=== PATIENT | male | born 1950 | race Two or more races ===

== ENCOUNTER 2016-09-30 03:23 | Inpatient (IN) | payer MEDICARE, MEDICAID ==
[2016-09-30 04:13] VITALS: BP 130/53
[2016-09-30] MEDS ORDERED: Pneumococcal Vaccine 0.5 mL Vial IM ONE (06:48)
[2016-09-30] MEDS ORDERED: guaiFENesin 200 MG/10 ML UDC PO PRN (09:53)
[2016-09-30] MEDS ORDERED: Maalox 30 mL Cup PO PRN (09:53)
[2016-09-30 11:20] LABS: HEMATOCRIT 37.3 % (39.0-49.0); HEMOGLOBIN 12.8 gm/dL (12.6-17.4); MEAN CELL VOLUME 91.8 fl (80-99); MEAN CORPUSCULAR HEMOGLOBIN 31.5 pg (27.0-31.0); MEAN CORPUSCULAR HGB CONC 34.3 pg (28.0-36.0); MEAN PLATELET VOLUME 7.4 fl; PLATELET COUNT 253 Th/cmm (150-400); RED BLOOD COUNT 4.06 Mil/cmm (3.80-5.80); RED CELL DISTRIBUTION WIDTH 12.6 % (11.5-20.0); WHITE BLOOD COUNT 13.3 Th/cmm (4.8-10.8)
[2016-09-30] MEDS: Albuterol Nebulizer 2.5mg/3mL HHN SCH ×3 (11:23→19:15)
[2016-09-30] MEDS: Ipratropium Neb 0.5 mg/2.5 mL UD HHN SCH ×3 (11:23→19:15)
[2016-09-30 11:32] LABS: ALB/GLOB RATIO 1.1 (1.0-1.8); ALKALINE PHOSPHATASE 76 U/L (34-104); ANION GAP 8.5 (7.0-16.0); BILIRUBIN,TOTAL 0.5 mg/dL (0.3-1.0); BUN - UREA NITROGEN 9 mg/dL (7-25); BUN/CREATININE RATIO 12.9; CALCIUM SERUM 9.6 mg/dL (8.6-10.3); CARBON DIOXIDE 26.2 mEq/L (21.0-31.0); CHLORIDE 101 mEq/L (98-107); CREATININE - SERUM 0.7 mg/dL (0.7-1.3); GLUCOSE 153 mg/dL (70-105); MAGNESIUM 1.9 mg/dL (1.9-2.7); POTASSIUM SERUM 3.7 mEq/L (3.5-5.1); SGOT 14 U/L (13-39); SGPT/ALT 15 U/L (7-52); SODIUM SERUM 132 mEq/L (136-145)
[2016-09-30 11:46] LABS: BNP 42.4 pg/mL (5.0-100.0)
[2016-09-30 11:55] LABS: BAND NEUTROPHILE 3 % (0-10); NEUTROPHILS 75 % (40-80); PLATELET ESTIMATE ADEQUATE (NORMAL); TOTAL CELLS COUNTED 100
[2016-09-30 12:08] LABS: TSH 0.88 uIU/ml (0.34-5.60)
[2016-09-30] MEDS: D5-0.45NS 1,000 ML IV SCH (12:12)
--- NOTE | 2016-09-30 12:13 | Diagnostic Imaging Report ---
Portable chest x-ray History: Cough Allowing for portable technique the heart size is normal. No focal pulmonary parenchymal processes. No hilar or mediastinal abnormalities. Calcification is noted in the soft tissues adjacent the lateral aspect of the left humeral head consistent with calcific tendinitis. Impression: Allowing for poor inspiration, no acute focal pulmonary processes
[2016-09-30] MEDS: Levofloxacin 500mg/100mL 500 MG/100 ML BAG IV SCH (12:14)
--- NOTE | 2016-09-30 12:38 | Internal Medicine Prog Note ---
Internal Medicine Subjective - Subjective Service Date: 09/30/16 ([facility] [id number]) Internal Medicine Objective - Results Result Diagrams: 09/30/16 10:40 09/30/16 10:40 Recent Labs: Laboratory Last Values WBC 13.3 Th/cmm (4.8-10.8) H 09/30/16 10:40 RBC 4.06 Mil/cmm (3.80-5.80) 09/30/16 10:40 Hgb 12.8 gm/dL (12.6-17.4) 09/30/16 10:40 Hct 37.3 % (39.0-49.0) L 09/30/16 10:40 MCV 91.8 fl (80-99) 09/30/16 10:40 MCH 31.5 pg (27.0-31.0) H 09/30/16 10:40 MCHC Differential 34.3 pg (28.0-36.0) 09/30/16 10:40 RDW 12.6 % (11.5-20.0) 09/30/16 10:40 Plt Count 253 Th/cmm (150-400) 09/30/16 10:40 MPV 7.4 fl 09/30/16 10:40 Band Neutrophils % 3 % (0-10) 09/30/16 10:40 Neutrophils (Manual) 75 % (40-80) 09/30/16 10:40 Lymphocytes 14 % (20-50) L 09/30/16 10:40 Monocytes 8 % (2-10) 09/30/16 10:40 Platelet Estimate ADEQUATE (NORMAL) 09/30/16 10:40 Sodium 132 mEq/L (136-145) L 09/30/16 10:40 Potassium 3.7 mEq/L (3.5-5.1) 09/30/16 10:40 Chloride 101 mEq/L (98-107) 09/30/16 10:40 Carbon Dioxide 26.2 mEq/L (21.0-31.0) 09/30/16 10:40 Anion Gap 8.5 (7.0-16.0) 09/30/16 10:40 BUN 9 mg/dL (7-25) 09/30/16 10:40 Creatinine 0.7 mg/dL (0.7-1.3) 09/30/16 10:40 Est GFR ( Amer) > 60.0 ml/min 09/30/16 10:40 Est GFR (Non-Af Amer) > 60.0 ml/min 09/30/16 10:40 BUN/Creatinine Ratio 12.9 09/30/16 10:40 Glucose 153 mg/dL (70-105) H 09/30/16 10:40 Calcium 9.6 mg/dL (8.6-10.3) 09/30/16 10:40 Magnesium 1.9 mg/dL (1.9-2.7) 09/30/16 10:40 Total Bilirubin 0.5 mg/dL (0.3-1.0) 09/30/16 10:40 AST 14 U/L (13-39) 09/30/16 10:40 ALT 15 U/L (7-52) 09/30/16 10:40 Alkaline Phosphatase 76 U/L (34-104) 09/30/16 10:40 Ammonia 54 umol/L (16-53) H 09/30/16 10:40 B-Natriuretic Peptide 42.4 pg/mL (5.0-100.0) 09/30/16 10:40 Total Protein 7.1 gm/dL (6.0-8.3) 09/30/16 10:40 Albumin 3.7 gm/dL (4.2-5.5) L 09/30/16 10:40 Globulin 3.4 gm/dL 09/30/16 10:40 Albumin/Globulin Ratio 1.1 (1.0-1.8) 09/30/16 10:40 - Physical Exam Vitals and I&O: Vital Signs Temp 98.0 F 09/30/16 06:00 Pulse 98 09/30/16 11:25 Resp 18 09/30/16 11:44 BP 120/56 09/30/16 06:00 Pulse Ox 99 09/30/16 11:25 Intake & Output 09/29/16 09/30/16 09/30/16 18:59 06:59 18:59 Intake Total 0 0 Output Total 300 0 Balance -300 0 Weight (lbs) 94 lb Intake: Oral 0 0 Output: Urine 300 0 Other: # Bowel Movements 0 Stool Characteristics Soft Soft Liquid Liquid Brown Brown Active Medications: Current Medications Acetaminophen (Tylenol) 650 mg PO Q4HR PRN PRN Reason: Pain or Fever >101 Stop: 11/29/16 09:52 Al Hydrox/Mg Hydrox/Simethicone (Maalox) 30 ml PO Q6HR PRN PRN Reason: GI DISTRESS Stop: 11/29/16 09:52 Albuterol Sulfate (Albuterol 2.5mg/3ml Neb Ud) 2.5 mg HHN QIDRT [facility] Stop: 11/29/16 10:59 Last Admin: 09/30/16 11:23 Dose: 2.5 mg Baclofen (Lioresal) 15 mg PO BID [facility] Stop: 11/29/16 16:59 Guaifenesin (Robitussin) 200 mg PO Q4HR PRN PRN Reason: Cough or Congestion Stop: 11/29/16 09:52 Dextrose/Sodium Chloride (D5-0.45ns) 1,000 mls @ 100 mls/hr IV .Q10H [facility] Stop: 11/29/16 09:59 Last Admin: 09/30/16 12:12 Dose: 100 mls/hr Levofloxacin (Levaquin Pb) 500 mg in 100 mls @ 100 mls/hr IV Q24HR [facility] Stop: 11/29/16 09:59 Last Admin: 09/30/16 12:14 Dose: 100 mls/hr Ipratropium [place] (Atrovent Neb 0.5mg/2.5ml) 0.5 mg HHN QIDRT [facility] Stop: 11/29/16 10:59 Last Admin: 09/30/16 11:23 Dose: 0.5 mg Lactulose (Cephulac) 10 gm PO DAILY [facility] Stop: 11/30/16 08:59 Levetiracetam 500 mg/ (Levetiracetam 250 mg) 750 mg PO BID [facility] Stop: 11/29/16 16:59 Lorazepam (Ativan) 1 mg IV Q4HR PRN; Protocol PRN Reason: Seizure Stop: 11/29/16 09:52 Meclizine HCl (Antivert) 25 mg PO DAILY PRN PRN Reason: Nausea / Vomiting Stop: 11/29/16 09:52 Ondansetron HCl (Zofran) 4 mg IV Q8H PRN PRN Reason: Nausea / Vomiting Stop: 11/29/16 09:52 Quetiapine Fumarate (Seroquel) 50 mg PO HS [facility] PRN Reason: Protocol Stop: 11/29/16 20:59 Trazodone HCl (Desyrel) 100 mg PO HS [facility] Stop: 11/29/16 20:59 Internal Medicine Assmt/Plan - Assessment Assessment: SEPSIS FEVER ALZHEIMER DEMENTIA SEIZURE
[2016-09-30] MEDS ORDERED: Albuterol Nebulizer 2.5mg/3mL HHN SCH (13:00)
[2016-09-30 17:02] LABS: URINE BILIRUBIN NEGATIVE (NEGATIVE); URINE COLOR YELLOW; URINE GLUCOSE (UA) NEGATIVE (NEGATIVE); URINE KETONE NEGATIVE (NEGATIVE)
[2016-09-30 17:15] LABS: URINE BLOOD MODERATE (NEGATIVE); URINE PH 7.5; URINE PROTEIN 30 mg/dL (NEGATIVE)
[2016-09-30 17:18] LABS: URINE BACTERIA NONE SEEN /hpf (NONE SEEN); URINE EPITHELIAL CELLS NONE SEEN /lpf (FEW); URINE RBC 25-50 /hpf (0-5); URINE WBC 0-2 /hpf (0-5)
--- NOTE | 2016-09-30 18:22 | History & Physical ---
CHIEF COMPLAINT: Fever for 3 days. HISTORY OF PRESENT ILLNESS: This is a 66-year-old male who is a direct admission from [facility]. According to the daughter at bedside, the patient has been having a 3-day history of fever and chills. The patient was taking [id number] Tylenol, but fever was unrelieved. Also, the daughter complained that the patient has been having foul smelling urine. No hematuria noted. The patient has no recent travel outside of the . The patient has severe Alzheimer dementia. The patient is being taken care of at home by his . The patient's daughter states that he has a sacral ulcer and she thinks that might be infected and also she states that his rectum too has wound that might be connected why he has fever. Due to insurance purposes, the patient is now here at [facility]. PAST MEDICAL HISTORY: Alzheimer dementia, seizures, and BPH. PAST SURGICAL HISTORY: TURP. SOCIAL HISTORY: The patient has no history of any smoking or drinking. The patient lives at home and is being taken care of with by his . ALLERGIES: No drug allergies. FAMILY HISTORY: Noncontributory. REVIEW OF SYSTEMS: Unable to obtain. The patient is confused. PHYSICAL EXAMINATION: GENERAL: This is an elderly male, well developed, well nourished, in no apparent distress. VITAL SIGNS: Temperature 98.0, heart rate 85, blood pressure 126/56, respirations 18, and O2 96%. HEENT: Head is normocephalic and atraumatic. NECK: Supple. No mass. LUNGS: A few rhonchi bilaterally upon auscultation. CARDIOVASCULAR: Regular rate and rhythm. No murmurs or gallops. SKIN: Intact, warm to touch. ABDOMEN: Soft, nontender, and nondistended. Positive bowel sounds in all 4 quadrants. LABORATORY DATA: WBC 13.3, H and H are 12.8 and 37.3, and platelets 253,000. Sodium 132, potassium 3.7, BUN of 9, creatinine 0.7, and ammonia 54. DIAGNOSIS: The patient had a chest x-ray done and the impression is poor inspiration, no acute focal pulmonary processes. ASSESSMENT: 1. Sepsis. 2. Fevers. 3. Acute urinary tract infection. 4. Alzheimer's dementia. 5. Seizure. PLAN: [facility] The patient to have a consultation with Dr. Jose Shaikh. The patient to have a blood culture done and urinalysis as well. We will keep the patient on IV fluids for hydration and IV antibiotics of Levaquin. Seizure precautions will be initiated. Wound care will also be ordered. We will continue to monitor the patient. JOB# [id number]
--- NOTE | 2016-09-30 23:13 | Admit Criteria Form ---
Admit Criteria Forms - Admit Criteria Diagnosis: URINARY COMPLICATIONS Clinical Indications for Inpatient Care (Place 'X' for any and all applicable criteria): Ongoing inpatient care may be indicated for urinary complications with ANY ONE of the following: [ X]I. Urinary tract infection requiring inpatient care as indicated by ANY ONE of the following(8)(19)(20): [ ]a) Severe symptoms (eg, high fever, severe pain) [ ]b) Vomiting or dehydration requiring ongoing inpatient care [ X]c) IV antibiotic needs that cannot be managed at lower level of care [ ]d) Hemodynamic instability [ ]e) Obstruction of collecting system by stone or tumor [ ]II. Urinary retention requiring drainage or surgery (3)(4)(5)(17)(18) [ ]III. Renal failure (Use Renal Failure Criteria for further information.) [ ]IV. Oliguria(30) [ ]V. Post obstructive diuresis requiring close monitoring of urine output and intravenous compensation for excessive fluid losses(33) Extended stay beyond goal length of stay for primary condition may be needed until ALL of the following are present(3)(4)(5)(8): [ ]a) Renal function (creatinine) at baseline, or daily decreases in creatinine consistent with renal function return [ ]b) Voiding adequately or with urinary catheter or percutaneous suprapubic tube and management regimen in place that is performable at lower level of care. [ ]c) Urine output adequate [ ]d) Fever absent or resolving [ ]e) Infection absent or treatable at next level of care The original [employer] content created by [email or web address] has been revised. The portions of the content which have been revised are identified through the use of italic text or in bold, and [facility] has neither reviewed nor approved the modified material. All other unmodified content is copyright [facility] Please see references footnoted in the original [facility] edition 2016
[2016-10-01] MEDS: D5-0.45NS 1,000 ML IV SCH ×2 (00:53→11:20)
[2016-10-01 05:04] LABS: % BASOPHILS 0.5 % (0.0-2.0); % EOSINOPHILS 3.7 % (0.0-5.0); % LYMPHOCYTES 12.1 % (20.0-50.0); % MONOCYTES 8.7 % (2.0-10.0); HEMOGLOBIN 11.1 gm/dL (12.6-17.4); MEAN CELL VOLUME 91.9 fl (80-99); MEAN CORPUSCULAR HEMOGLOBIN 31.1 pg (27.0-31.0); MEAN CORPUSCULAR HGB CONC 33.8 pg (28.0-36.0); MEAN PLATELET VOLUME 6.9 fl; NEUTROPHILE ABSOLUTE 5.3 Th/cmm (1.8-8.0); PLATELET COUNT 261 Th/cmm (150-400); RED BLOOD COUNT 3.58 Mil/cmm (3.80-5.80); RED CELL DISTRIBUTION WIDTH 12.4 % (11.5-20.0)
[2016-10-01 05:23] LABS: HEMATOCRIT 32.9 % (39.0-49.0)
[2016-10-01] MEDS: Albuterol Nebulizer 2.5mg/3mL HHN SCH ×4 (06:44→20:18)
[2016-10-01] MEDS: Ipratropium Neb 0.5 mg/2.5 mL UD HHN SCH ×4 (06:44→20:18)
[2016-10-01 09:00] LABS: ANION GAP 9.2 (7.0-16.0); BUN - UREA NITROGEN 8 mg/dL (7-25); BUN/CREATININE RATIO 11.4; CALCIUM SERUM 8.8 mg/dL (8.6-10.3); CARBON DIOXIDE 24.6 mEq/L (21.0-31.0); CHLORIDE 103 mEq/L (98-107); CREATININE - SERUM 0.7 mg/dL (0.7-1.3); GLUCOSE 127 mg/dL (70-105); POTASSIUM SERUM 3.8 mEq/L (3.5-5.1); SODIUM SERUM 133 mEq/L (136-145)
[2016-10-01] MEDS: Lactulose 10 Gm/15 mL 30mL UDC PO SCH (09:52)
[2016-10-01] MEDS: Levofloxacin 500mg/100mL 500 MG/100 ML BAG IV SCH (10:01)
[2016-10-01 11:10] LABS: FOLIC ACID 13.4 ng/mL (>3.0)
--- NOTE | 2016-10-01 13:15 | Infectious Disease Prog Note ---
Infectious Disease Subjective - Review of Systems Service Date: 10/01/16 Subjective: dictated. Infectious Disease Objective - Results Result Diagrams: 10/01/16 04:35 10/01/16 04:35 Recent Labs: Laboratory Last Values WBC 7.0 Th/cmm (4.8-10.8) D 10/01/16 04:35 RBC 3.58 Mil/cmm (3.80-5.80) L 10/01/16 04:35 Hgb 11.1 gm/dL (12.6-17.4) L 10/01/16 04:35 Hct 32.9 % (39.0-49.0) L D 10/01/16 04:35 MCV 91.9 fl (80-99) 10/01/16 04:35 MCH 31.1 pg (27.0-31.0) H 10/01/16 04:35 MCHC Differential 33.8 pg (28.0-36.0) 10/01/16 04:35 RDW 12.4 % (11.5-20.0) 10/01/16 04:35 Plt Count 261 Th/cmm (150-400) 10/01/16 04:35 MPV 6.9 fl 10/01/16 04:35 Neutrophils % 75.0 % (40.0-80.0) 10/01/16 04:35 Band Neutrophils % 3 % (0-10) 09/30/16 10:40 Lymphocytes % 12.1 % (20.0-50.0) L 10/01/16 04:35 Monocytes % 8.7 % (2.0-10.0) 10/01/16 04:35 Eosinophils % 3.7 % (0.0-5.0) 10/01/16 04:35 Basophils % 0.5 % (0.0-2.0) 10/01/16 04:35 Neutrophils (Manual) 75 % (40-80) 09/30/16 10:40 Lymphocytes 14 % (20-50) L 09/30/16 10:40 Monocytes 8 % (2-10) 09/30/16 10:40 Eosinophils Not Reportable 09/30/16 10:40 Platelet Estimate ADEQUATE (NORMAL) 09/30/16 10:40 Sodium 133 mEq/L (136-145) L 10/01/16 04:35 Potassium 3.8 mEq/L (3.5-5.1) 10/01/16 04:35 Chloride 103 mEq/L (98-107) 10/01/16 04:35 Carbon Dioxide 24.6 mEq/L (21.0-31.0) 10/01/16 04:35 Anion Gap 9.2 (7.0-16.0) 10/01/16 04:35 BUN 8 mg/dL (7-25) 10/01/16 04:35 Creatinine 0.7 mg/dL (0.7-1.3) 10/01/16 04:35 Est GFR ( Amer) > 60.0 ml/min 10/01/16 04:35 Est GFR (Non-Af Amer) > 60.0 ml/min 10/01/16 04:35 BUN/Creatinine Ratio 11.4 10/01/16 04:35 Glucose 127 mg/dL (70-105) H 10/01/16 04:35 Calcium 8.8 mg/dL (8.6-10.3) 10/01/16 04:35 Magnesium 1.9 mg/dL (1.9-2.7) 09/30/16 10:40 Total Bilirubin 0.5 mg/dL (0.3-1.0) 09/30/16 10:40 AST 14 U/L (13-39) 09/30/16 10:40 ALT 15 U/L (7-52) 09/30/16 10:40 Alkaline Phosphatase 76 U/L (34-104) 09/30/16 10:40 Ammonia 54 umol/L (16-53) H 09/30/16 10:40 B-Natriuretic Peptide 42.4 pg/mL (5.0-100.0) 09/30/16 10:40 Total Protein 7.1 gm/dL (6.0-8.3) 09/30/16 10:40 Albumin 3.7 gm/dL (4.2-5.5) L 09/30/16 10:40 Globulin 3.4 gm/dL 09/30/16 10:40 Albumin/Globulin Ratio 1.1 (1.0-1.8) 09/30/16 10:40 Vitamin B12 600 pg/mL (211-946) 09/30/16 10:40 Folic Acid 13.4 ng/mL (>3.0) 09/30/16 10:40 TSH 0.88 uIU/ml (0.34-5.60) 09/30/16 10:40 Urine Source CATH 09/30/16 15:00 Urine Color YELLOW 09/30/16 15:00 Urine Clarity CLEAR (CLEAR) 09/30/16 15:00 Urine pH 7.5 09/30/16 15:00 Ur Specific [place] 1.020 (1.005-1.030) 09/30/16 15:00 Urine Protein 30 mg/dL (NEGATIVE) H 09/30/16 15:00 Urine Glucose (UA) NEGATIVE mg/dL (NEGATIVE) 09/30/16 15:00 Urine Ketones NEGATIVE mg/dL (NEGATIVE) 09/30/16 15:00 Urine Blood MODERATE (NEGATIVE) H 09/30/16 15:00 Urine Nitrate NEGATIVE (NEGATIVE) 09/30/16 15:00 Urine Bilirubin NEGATIVE (NEGATIVE) 09/30/16 15:00 Urine Urobilinogen 1.0 E.U./dL (0.2 - 1.0) 09/30/16 15:00 Ur Leukocyte Esterase NEGATIVE (NEGATIVE) 09/30/16 15:00 Urine RBC 25-50 /hpf (0-5) H 09/30/16 15:00 Urine WBC 0-2 /hpf (0-5) 09/30/16 15:00 Ur Epithelial Cells NONE SEEN /lpf (FEW) 09/30/16 15:00 Urine Bacteria NONE SEEN /hpf (NONE SEEN) 09/30/16 15:00 - Physical Exam Vitals and I&O: Vital Signs Temp 100.1 F 10/01/16 11:00 Pulse 98 10/01/16 11:04 Resp 20 10/01/16 11:04 BP 111/67 10/01/16 11:00 Pulse Ox 99 10/01/16 11:04 Intake & Output 09/30/16 10/01/16 10/01/16 18:59 06:59 18:59 Intake Total 1100 1400 1000 Output Total 1200 2300 Balance -100 -900 1000 Intake: Intake, IV Amount 100 1000 1000 D5-0.45NS 1,000 ml @ 100 1000 1000 mls/hr IV .Q10H [facility] Rx#: [id number] Levofloxacin 500mg/100mL 100 500 mg In 100 ml @ 100 mls/hr IV Q24HR [facility] Rx#: [id number] Oral 200 400 Tube Feeding 800 Output: Urine 1200 2300 Other: Stool Characteristics Soft Soft Liquid Liquid Brown Brown Active Medications: Current Medications Acetaminophen (Tylenol) 650 mg PO Q4HR PRN PRN Reason: Pain or Fever >101 Stop: 11/29/16 09:52 Last Admin: 10/01/16 12:07 Dose: 650 mg Al Hydrox/Mg Hydrox/Simethicone (Maalox) 30 ml PO Q6HR PRN PRN Reason: GI DISTRESS Stop: 11/29/16 09:52 Albuterol Sulfate (Albuterol 2.5mg/3ml Neb Ud) 2.5 mg N QIDRT [facility] Stop: 11/29/16 10:59 Last Admin: 10/01/16 11:03 Dose: 2.5 mg Baclofen (Lioresal) 15 mg PO BID [facility] Stop: 11/29/16 16:59 Last Admin: 10/01/16 09:52 Dose: 15 mg Guaifenesin (Robitussin) 200 mg PO Q4HR PRN PRN Reason: Cough or Congestion Stop: 11/29/16 09:52 Dextrose/Sodium Chloride (D5-0.45ns) 1,000 mls @ 100 mls/hr IV .Q10H [facility] Stop: 11/29/16 09:59 Last Admin: 10/01/16 11:20 Dose: 100 mls/hr Levofloxacin (Levaquin Pb) 500 mg in 100 mls @ 100 mls/hr IV Q24HR [facility] Stop: 11/29/16 09:59 Last Admin: 10/01/16 10:01 Dose: 100 mls/hr Ipratropium [place] (Atrovent Neb 0.5mg/2.5ml) 0.5 mg HHN QIDRT [facility] Stop: 11/29/16 10:59 Last Admin: 10/01/16 11:03 Dose: 0.5 mg Lactulose (Cephulac) 10 gm PO DAILY [facility] Stop: 11/30/16 08:59 Last Admin: 10/01/16 09:52 Dose: 10 gm Levetiracetam 500 mg/ (Levetiracetam 250 mg) 750 mg PO BID [facility] Stop: 11/29/16 16:59 Last Admin: 10/01/16 09:53 Dose: 750 mg Lorazepam (Ativan) 1 mg IV Q4HR PRN; Protocol PRN Reason: Seizure Stop: 11/29/16 09:52 Last Admin: 10/01/16 11:20 Dose: 1 mg Meclizine HCl (Antivert) 25 mg PO DAILY PRN PRN Reason: Nausea / Vomiting Stop: 11/29/16 09:52 Ondansetron HCl (Zofran) 4 mg IV Q8H PRN PRN Reason: Nausea / Vomiting Stop: 11/29/16 09:52 Quetiapine Fumarate (Seroquel) 50 mg PO BID [facility] PRN Reason: Protocol Stop: 11/30/16 16:59 Trazodone HCl (Desyrel) 100 mg PO HS [facility] Stop: 11/29/16 20:59
[2016-10-01] MEDS ORDERED: Diltiazem 5 mg/mL 5mL Vial IVP PRN (16:06)
--- NOTE | 2016-10-01 17:01 | Internal Medicine Prog Note ---
Internal Medicine Subjective - Subjective Patient seen and examined:: with staff, chart reviewed Patient is:: asleep, non-verbal, non-interactive Patient Complaints of:: congestion Per staff patient is:: no adverse event, poor appetite, poor oral intake, noncompliant, confused Internal Medicine Objective - Results Result Diagrams: 10/01/16 04:35 10/01/16 04:35 Recent Labs: Laboratory Last Values WBC 7.0 Th/cmm (4.8-10.8) D 10/01/16 04:35 RBC 3.58 Mil/cmm (3.80-5.80) L 10/01/16 04:35 Hgb 11.1 gm/dL (12.6-17.4) L 10/01/16 04:35 Hct 32.9 % (39.0-49.0) L D 10/01/16 04:35 MCV 91.9 fl (80-99) 10/01/16 04:35 MCH 31.1 pg (27.0-31.0) H 10/01/16 04:35 MCHC Differential 33.8 pg (28.0-36.0) 10/01/16 04:35 RDW 12.4 % (11.5-20.0) 10/01/16 04:35 Plt Count 261 Th/cmm (150-400) 10/01/16 04:35 MPV 6.9 fl 10/01/16 04:35 Neutrophils % 75.0 % (40.0-80.0) 10/01/16 04:35 Band Neutrophils % 3 % (0-10) 09/30/16 10:40 Lymphocytes % 12.1 % (20.0-50.0) L 10/01/16 04:35 Monocytes % 8.7 % (2.0-10.0) 10/01/16 04:35 Eosinophils % 3.7 % (0.0-5.0) 10/01/16 04:35 Basophils % 0.5 % (0.0-2.0) 10/01/16 04:35 Neutrophils (Manual) 75 % (40-80) 09/30/16 10:40 Lymphocytes 14 % (20-50) L 09/30/16 10:40 Monocytes 8 % (2-10) 09/30/16 10:40 Eosinophils Not Reportable 09/30/16 10:40 Platelet Estimate ADEQUATE (NORMAL) 09/30/16 10:40 Sodium 133 mEq/L (136-145) L 10/01/16 04:35 Potassium 3.8 mEq/L (3.5-5.1) 10/01/16 04:35 Chloride 103 mEq/L (98-107) 10/01/16 04:35 Carbon Dioxide 24.6 mEq/L (21.0-31.0) 10/01/16 04:35 Anion Gap 9.2 (7.0-16.0) 10/01/16 04:35 BUN 8 mg/dL (7-25) 10/01/16 04:35 Creatinine 0.7 mg/dL (0.7-1.3) 10/01/16 04:35 Est GFR ( Amer) > 60.0 ml/min 10/01/16 04:35 Est GFR (Non-Af Amer) > 60.0 ml/min 10/01/16 04:35 BUN/Creatinine Ratio 11.4 10/01/16 04:35 Glucose 127 mg/dL (70-105) H 10/01/16 04:35 Calcium 8.8 mg/dL (8.6-10.3) 10/01/16 04:35 Magnesium 1.9 mg/dL (1.9-2.7) 09/30/16 10:40 Total Bilirubin 0.5 mg/dL (0.3-1.0) 09/30/16 10:40 AST 14 U/L (13-39) 09/30/16 10:40 ALT 15 U/L (7-52) 09/30/16 10:40 Alkaline Phosphatase 76 U/L (34-104) 09/30/16 10:40 Ammonia 54 umol/L (16-53) H 09/30/16 10:40 B-Natriuretic Peptide 42.4 pg/mL (5.0-100.0) 09/30/16 10:40 Total Protein 7.1 gm/dL (6.0-8.3) 09/30/16 10:40 Albumin 3.7 gm/dL (4.2-5.5) L 09/30/16 10:40 Globulin 3.4 gm/dL 09/30/16 10:40 Albumin/Globulin Ratio 1.1 (1.0-1.8) 09/30/16 10:40 Vitamin B12 600 pg/mL (211-946) 09/30/16 10:40 Folic Acid 13.4 ng/mL (>3.0) 09/30/16 10:40 TSH 0.88 uIU/ml (0.34-5.60) 09/30/16 10:40 Urine Source CATH 09/30/16 15:00 Urine Color YELLOW 09/30/16 15:00 Urine Clarity CLEAR (CLEAR) 09/30/16 15:00 Urine pH 7.5 09/30/16 15:00 Ur Specific [place] 1.020 (1.005-1.030) 09/30/16 15:00 Urine Protein 30 mg/dL (NEGATIVE) H 09/30/16 15:00 Urine Glucose (UA) NEGATIVE mg/dL (NEGATIVE) 09/30/16 15:00 Urine Ketones NEGATIVE mg/dL (NEGATIVE) 09/30/16 15:00 Urine Blood MODERATE (NEGATIVE) H 09/30/16 15:00 Urine Nitrate NEGATIVE (NEGATIVE) 09/30/16 15:00 Urine Bilirubin NEGATIVE (NEGATIVE) 09/30/16 15:00 Urine Urobilinogen 1.0 E.U./dL (0.2 - 1.0) 09/30/16 15:00 Ur Leukocyte Esterase NEGATIVE (NEGATIVE) 09/30/16 15:00 Urine RBC 25-50 /hpf (0-5) H 09/30/16 15:00 Urine WBC 0-2 /hpf (0-5) 09/30/16 15:00 Ur Epithelial Cells NONE SEEN /lpf (FEW) 09/30/16 15:00 Urine Bacteria NONE SEEN /hpf (NONE SEEN) 09/30/16 15:00 - Physical Exam Vitals and I&O: Vital Signs Temp 98.2 F 10/01/16 15:00 Pulse 134 10/01/16 16:42 Resp 20 10/01/16 15:27 BP 112/73 10/01/16 15:00 Pulse Ox 98 10/01/16 15:27 Intake & Output 09/30/16 10/01/16 10/01/16 18:59 06:59 18:59 Intake Total 1100 1400 1000 Output Total 1200 2300 Balance -100 -900 1000 Intake: Intake, IV Amount 100 1000 1000 D5-0.45NS 1,000 ml @ 100 1000 1000 mls/hr IV .Q10H [facility] Rx#: [id number] Levofloxacin 500mg/100mL 100 500 mg In 100 ml @ 100 mls/hr IV Q24HR [facility] Rx#: [id number] Oral 200 400 Tube Feeding 800 Output: Urine 1200 2300 Other: Stool Characteristics Soft Soft Formed Liquid Liquid Brown Brown Active Medications: Current Medications Acetaminophen (Tylenol) 650 mg PO Q4HR PRN PRN Reason: Pain or Fever >101 Stop: 11/29/16 09:52 Last Admin: 10/01/16 12:07 Dose: 650 mg Al Hydrox/Mg Hydrox/Simethicone (Maalox) 30 ml PO Q6HR PRN PRN Reason: GI DISTRESS Stop: 11/29/16 09:52 Albuterol Sulfate (Albuterol 2.5mg/3ml Neb Ud) 2.5 mg N QIDRT [facility] Stop: 11/29/16 10:59 Last Admin: 10/01/16 15:27 Dose: 2.5 mg Baclofen (Lioresal) 15 mg PO BID [facility] Stop: 11/29/16 16:59 Last Admin: 10/01/16 09:52 Dose: 15 mg Diltiazem HCl (Cardizem) 20 mg IVP Q4H PRN PRN Reason: FOR HR >120 Stop: 11/30/16 16:05 Last Admin: 10/01/16 16:42 Dose: 20 mg Guaifenesin (Robitussin) 200 mg PO Q4HR PRN PRN Reason: Cough or Congestion Stop: 11/29/16 09:52 Dextrose/Sodium Chloride (D5-0.45ns) 1,000 mls @ 100 mls/hr IV .Q10H [facility] Stop: 11/29/16 09:59 Last Admin: 10/01/16 11:20 Dose: 100 mls/hr Levofloxacin (Levaquin Pb) 500 mg in 100 mls @ 100 mls/hr IV Q24HR [facility] Stop: 11/29/16 09:59 Last Admin: 10/01/16 10:01 Dose: 100 mls/hr Ipratropium [place] (Atrovent Neb 0.5mg/2.5ml) 0.5 mg HHN QIDRT [facility] Stop: 11/29/16 10:59 Last Admin: 01/17/17 15:27 Dose: 0.5 mg Lactulose (Cephulac) 10 gm PO DAILY [facility] Stop: 11/30/16 08:59 Last Admin: 10/01/16 09:52 Dose: 10 gm Levetiracetam 500 mg/ (Levetiracetam 250 mg) 750 mg PO BID [facility] Stop: 11/29/16 16:59 Last Admin: 10/01/16 09:53 Dose: 750 mg Lorazepam (Ativan) 1 mg IV Q4HR PRN; Protocol PRN Reason: Seizure Stop: 11/29/16 09:52 Last Admin: 10/01/16 15:13 Dose: 1 mg Meclizine HCl (Antivert) 25 mg PO DAILY PRN PRN Reason: Nausea / Vomiting Stop: 11/29/16 09:52 Ondansetron HCl (Zofran) 4 mg IV Q8H PRN PRN Reason: Nausea / Vomiting Stop: 11/29/16 09:52 Quetiapine Fumarate (Seroquel) 50 mg PO BID CHRIS PRN Reason: Protocol Stop: 11/30/16 16:59 Trazodone HCl (Desyrel) 100 mg PO HS CHRIS Stop: 11/29/16 20:59 General: lethargic, demented HEENT: NC/AT, PERRLA Neck: Supple Lungs: congested, rales Cardiovascular: RRR, Normal S1, Normal S2 Abdomen: soft non-tender, thin Extremities: excoriation, contracture Neurological: no change Internal Medicine Assmt/Plan - Assessment Assessment: SEPSIS FEVER ALZHEIMER DEMENTIA SEIZURE svt hematuria anemia - Plan Plan: cont on iv abx check cx check ct chest dw family at bedside dw rn
--- NOTE | 2016-10-02 04:56 | Consultation ---
INFECTIOUS DISEASE CONSULTATION REASON FOR CONSULTATION: Sepsis. HISTORY OF PRESENT ILLNESS: The patient is a 66-year-old male with a past medical history of dementia, seizure disorder, and BPH. The patient developed fever and chills for last 3 days, so he was taken to [facility] for further evaluation and management. On initial evaluation, the patient's temperature was 98.7 degrees Fahrenheit and WBC count was 15,600. The patient's daughter also informed that the patient has foul smelling urine in his diaper with increased yellow coloration. The patient also has associated cough, but no runny nose. The patient was agitated. The patient was severely demented and unable to give any history. The patient was transferred to [facility] for insurance purposes. The patient was afebrile most of the time, but his temperature went to 100.1 degree Fahrenheit recently. The patient's WBC count has improved. Sepsis workup was performed and the patient was taking Levaquin. ID consult was called for the antibiotic management. PAST MEDICAL HISTORY: Dementia, seizure disorder, and BPH. ALLERGIES: NKDA. MEDICATIONS: As per medication reconciliation sheet. Antibiotic steinberg, he is taking Levaquin. PAST SURGICAL HISTORY: Includes TURP. SOCIAL HISTORY: The patient lives at home with his . FAMILY HISTORY: Noncontributory. REVIEW OF SYSTEMS: Unable to obtain, the patient is very confused and agitated. The patient had low-grade fever. No diarrhea. No constipation. PHYSICAL EXAMINATION: VITAL SIGNS: Current vital signs show temperature 100.1 degrees Fahrenheit, pulse is 98, respiration is 20, and blood pressure 111/67. GENERAL: The patient is comfortable lying in the bed, not in acute distress. HEENT: Head is normocephalic and atraumatic. Oral cavity moist, pink tongue. Eyes: Pallor is present, no icterus. PERRLA. EOMI. NECK: Supple. No JVD. No carotid bruit. Trachea in midline. CHEST: Bilateral breath sounds. No crackles or wheezing. HEART: S1, S2 within normal limit, regular rate and rhythm. No murmur and no gallop. ABDOMEN: Soft, nontender, and nondistended. Bowel sounds are present. EXTREMITIES: No cyanosis, no clubbing, and no edema. NEUROLOGIC: Agitated and confused. LABORATORY DATA: Current lab shows WBC count is 7000, hemoglobin is 11.1, hematocrit 32.9, and platelets are 261,000. Sodium is 133, potassium 3.8, chloride 103, bicarbonate is 25, BUN is 8, creatinine is 0.7, glucose is 127. Urinalysis showed hematuria with RBC 25-50, and chest x-ray at [facility] showed no infiltrate and no acute disease. IMPRESSION: 1. Fever. 2. Leukocytosis, improved, suspect reactive, rule out sepsis. 3. Dementia. 4. Benign prostatic hyperplasia. 5. Hypertension. RECOMMENDATIONS: We will continue Levaquin. Depending on clinical course, may consider plan. Meanwhile, continue with Levaquin. Follow up sepsis workup. Thank you Dr. Mcfarland for involving me taking care of this patient. JOB# [id number]
[2016-10-02 05:17] LABS: % BASOPHILS 1.1 % (0.0-2.0); % LYMPHOCYTES 7.2 % (20.0-50.0); % MONOCYTES 7.8 % (2.0-10.0); % NEUTROPHILS 79.9 % (40.0-80.0); HEMATOCRIT 33.7 % (39.0-49.0); HEMOGLOBIN 11.3 gm/dL (12.6-17.4); MEAN CELL VOLUME 93.3 fl (80-99); MEAN CORPUSCULAR HEMOGLOBIN 31.3 pg (27.0-31.0); MEAN CORPUSCULAR HGB CONC 33.5 pg (28.0-36.0); MEAN PLATELET VOLUME 6.7 fl; NEUTROPHILE ABSOLUTE 5.1 Th/cmm (1.8-8.0); PLATELET COUNT 288 Th/cmm (150-400); RED BLOOD COUNT 3.61 Mil/cmm (3.80-5.80); RED CELL DISTRIBUTION WIDTH 12.2 % (11.5-20.0); WHITE BLOOD COUNT 6.5 Th/cmm (4.8-10.8)
[2016-10-02 05:39] LABS: ALB/GLOB RATIO 1.1 (1.0-1.8); ALKALINE PHOSPHATASE 65 U/L (34-104); ANION GAP 6.9 (7.0-16.0); BILIRUBIN,TOTAL 0.4 mg/dL (0.3-1.0); BUN - UREA NITROGEN 6 mg/dL (7-25); CHLORIDE 101 mEq/L (98-107); CREATININE - SERUM 0.6 mg/dL (0.7-1.3); GLUCOSE 109 mg/dL (70-105); POTASSIUM SERUM 3.9 mEq/L (3.5-5.1); SGOT 24 U/L (13-39); SGPT/ALT 27 U/L (7-52); SODIUM SERUM 134 mEq/L (136-145)
[2016-10-02] MEDS: Ipratropium Neb 0.5 mg/2.5 mL UD HHN SCH ×3 (08:02→16:09)
[2016-10-02] MEDS: Albuterol Nebulizer 2.5mg/3mL HHN SCH ×3 (08:02→16:09)
[2016-10-02] MEDS: Lactulose 10 Gm/15 mL 30mL UDC PO SCH (08:41)
[2016-10-02] MEDS: Levofloxacin 500mg/100mL 500 MG/100 ML BAG IV SCH (11:00)
[2016-10-02 11:12] LABS: AFP TUMOR MARKER 1.4 ng/mL (0.0-8.3); CARCINOEMBRYONIC ANTIGEN 2.5 ng/mL (0.0-4.7)
--- NOTE | 2016-10-02 13:05 | Consultation ---
AGE: 66. SEX: Male. REFERRING PHYSICIAN: Dr. Mcfarland. RECYCLING MANAGER: Dr. Trotter. REASON FOR THE CONSULT: Agitation and hallucinations. HISTORY OF PRESENT ILLNESS: The patient is a 66-year-old male who was admitted to the hospital with high fever. The patient has history of dementia and psychosis and I was asked to evaluate the patient. The patient has history of dementia. The patient was taking Seroquel and trazodone. The patient's family said that ____ increased psychosis, but he has not been taking them since he came into the hospital. He also has been anxious and restless. The patient also has not been answering much of the questions and his appetite is much decreased. PAST PSYCHIATRIC HISTORY: The patient has history of dementia. PAST MEDICAL HISTORY: The patient was admitted to the hospital with high fever. SOCIAL HISTORY: The patient lives with his . He has 8 children. He denies ____ alcohol or drug use. MENTAL STATUS EXAM: The patient appears older than his stated age. Did not answer questions and most of the information obtained from the family. The patient denies current family. Have periods of hallucinations and being paranoid. TREATMENT PLAN: We will continue monitoring his behavior and his condition closely. We will continue Seroquel and we will continue trazodone and we will continue to follow up with his behavior closely. JOB# [id number]
[2016-10-02] MEDS ORDERED: IOHEXOL 300MG/ML 100 ML VIAL PO ONE (13:13)
--- NOTE | 2016-10-02 13:54 | Internal Medicine Prog Note ---
Internal Medicine Subjective - Subjective Service Date: 10/02/16 Patient seen and examined:: with staff Patient is:: awake Per staff patient is:: no adverse event Internal Medicine Objective - Results Result Diagrams: 10/02/16 05:00 10/02/16 05:00 Recent Labs: Laboratory Last Values WBC 6.5 Th/cmm (4.8-10.8) 10/02/16 05:00 RBC 3.61 Mil/cmm (3.80-5.80) L 10/02/16 05:00 Hgb 11.3 gm/dL (12.6-17.4) L 10/02/16 05:00 Hct 33.7 % (39.0-49.0) L 10/02/16 05:00 MCV 93.3 fl (80-99) 10/02/16 05:00 MCH 31.3 pg (27.0-31.0) H 10/02/16 05:00 MCHC Differential 33.5 pg (28.0-36.0) 10/02/16 05:00 RDW 12.2 % (11.5-20.0) 10/02/16 05:00 Plt Count 288 Th/cmm (150-400) 10/02/16 05:00 MPV 6.7 fl 10/02/16 05:00 Neutrophils % 79.9 % (40.0-80.0) 10/02/16 05:00 Band Neutrophils % 3 % (0-10) 09/30/16 10:40 Lymphocytes % 7.2 % (20.0-50.0) L 10/02/16 05:00 Monocytes % 7.8 % (2.0-10.0) 10/02/16 05:00 Eosinophils % 4.0 % (0.0-5.0) 10/02/16 05:00 Basophils % 1.1 % (0.0-2.0) 10/02/16 05:00 Neutrophils (Manual) 75 % (40-80) 09/30/16 10:40 Lymphocytes 14 % (20-50) L 09/30/16 10:40 Monocytes 8 % (2-10) 09/30/16 10:40 Eosinophils Not Reportable 09/30/16 10:40 Platelet Estimate ADEQUATE (NORMAL) 09/30/16 10:40 Sodium 134 mEq/L (136-145) L 10/02/16 05:00 Potassium 3.9 mEq/L (3.5-5.1) 10/02/16 05:00 Chloride 101 mEq/L (98-107) 10/02/16 05:00 Carbon Dioxide 30.0 mEq/L (21.0-31.0) 10/02/16 05:00 Anion Gap 6.9 (7.0-16.0) L 10/02/16 05:00 BUN 6 mg/dL (7-25) L 10/02/16 05:00 Creatinine 0.6 mg/dL (0.7-1.3) L 10/02/16 05:00 Est GFR ( Amer) > 60.0 ml/min 10/02/16 05:00 Est GFR (Non-Af Amer) > 60.0 ml/min 10/02/16 05:00 BUN/Creatinine Ratio 10.0 10/02/16 05:00 Glucose 109 mg/dL (70-105) H 10/02/16 05:00 Calcium 9.0 mg/dL (8.6-10.3) 10/02/16 05:00 Magnesium 1.9 mg/dL (1.9-2.7) 09/30/16 10:40 Total Bilirubin 0.4 mg/dL (0.3-1.0) 10/02/16 05:00 AST 24 U/L (13-39) 10/02/16 05:00 ALT 27 U/L (7-52) 10/02/16 05:00 Alkaline Phosphatase 65 U/L (34-104) 10/02/16 05:00 Ammonia 48 umol/L (16-53) 10/02/16 05:00 B-Natriuretic Peptide 42.4 pg/mL (5.0-100.0) 09/30/16 10:40 Total Protein 6.6 gm/dL (6.0-8.3) 10/02/16 05:00 Albumin 3.4 gm/dL (4.2-5.5) L 10/02/16 05:00 Globulin 3.2 gm/dL 10/02/16 05:00 Albumin/Globulin Ratio 1.1 (1.0-1.8) 10/02/16 05:00 Tumor Marker AFP 1.4 ng/mL (0.0-8.3) 10/01/16 10:40 Carcinoembryonic Ag 2.5 ng/mL (0.0-4.7) 10/01/16 10:40 Vitamin B12 600 pg/mL (211-946) 09/30/16 10:40 Folic Acid 13.4 ng/mL (>3.0) 09/30/16 10:40 TSH 0.88 uIU/ml (0.34-5.60) 09/30/16 10:40 Urine Source CATH 09/30/16 15:00 Urine Color YELLOW 09/30/16 15:00 Urine Clarity CLEAR (CLEAR) 09/30/16 15:00 Urine pH 7.5 09/30/16 15:00 Ur Specific [place] 1.020 (1.005-1.030) 09/30/16 15:00 Urine Protein 30 mg/dL (NEGATIVE) H 09/30/16 15:00 Urine Glucose (UA) NEGATIVE mg/dL (NEGATIVE) 09/30/16 15:00 Urine Ketones NEGATIVE mg/dL (NEGATIVE) 09/30/16 15:00 Urine Blood MODERATE (NEGATIVE) H 09/30/16 15:00 Urine Nitrate NEGATIVE (NEGATIVE) 09/30/16 15:00 Urine Bilirubin NEGATIVE (NEGATIVE) 09/30/16 15:00 Urine Urobilinogen 1.0 E.U./dL (0.2 - 1.0) 09/30/16 15:00 Ur Leukocyte Esterase NEGATIVE (NEGATIVE) 09/30/16 15:00 Urine RBC 25-50 /hpf (0-5) H 09/30/16 15:00 Urine WBC 0-2 /hpf (0-5) 09/30/16 15:00 Ur Epithelial Cells NONE SEEN /lpf (FEW) 09/30/16 15:00 Urine Bacteria NONE SEEN /hpf (NONE SEEN) 09/30/16 15:00 - Physical Exam Vitals and I&O: Vital Signs Temp 98.9 F 10/02/16 12:00 Pulse 105 10/02/16 12:27 Resp 20 10/02/16 12:27 BP 125/78 10/02/16 12:00 Pulse Ox 99 10/02/16 12:27 Intake & Output 10/01/16 10/02/16 10/02/16 18:59 06:59 18:59 Intake Total 1100 750 Output Total 2200 Balance 1100 -1450 Intake: Intake, IV Amount 1100 D5-0.45NS 1,000 ml @ 100 1000 mls/hr IV .Q10H [facility] Rx#: [id number] Levofloxacin 500mg/100mL 100 500 mg In 100 ml @ 100 mls/hr IV Q24HR [facility] Rx#: [id number] Oral 750 Output: Urine 2200 Other: Stool Characteristics Formed Soft Formed Active Medications: Current Medications Acetaminophen (Tylenol) 650 mg PO Q4HR PRN PRN Reason: Pain or Fever >101 Stop: 11/29/16 09:52 Last Admin: 10/01/16 12:07 Dose: 650 mg Al Hydrox/Mg Hydrox/Simethicone (Maalox) 30 ml PO Q6HR PRN PRN Reason: GI DISTRESS Stop: 11/29/16 09:52 Albuterol Sulfate (Albuterol 2.5mg/3ml Neb Ud) 2.5 mg HHN QIDRT [facility] Stop: 11/29/16 10:59 Last Admin: 10/02/16 12:25 Dose: 2.5 mg Baclofen (Lioresal) 15 mg PO BID [facility] Stop: 11/29/16 16:59 Last Admin: 10/02/16 08:43 Dose: 15 mg Diltiazem HCl (Cardizem) 20 mg IVP Q4H PRN PRN Reason: FOR HR >120 Stop: 11/30/16 16:05 Last Admin: 10/01/16 16:42 Dose: 20 mg Diltiazem HCl (Cardizem) 60 mg PO Q6HR [facility] Stop: 12/01/16 17:59 Guaifenesin (Robitussin) 200 mg PO Q4HR PRN PRN Reason: Cough or Congestion Stop: 11/29/16 09:52 Levofloxacin (Levaquin Pb) 500 mg in 100 mls @ 100 mls/hr IV Q24HR [facility] Stop: 11/29/16 09:59 Last Admin: 10/02/16 11:00 Dose: 100 mls/hr Dextrose/Sodium Chloride (D5-0.45ns) 1,000 mls @ 75 mls/hr IV .[id number] [facility] Stop: 11/29/16 09:59 Ipratropium [place] (Atrovent Neb 0.5mg/2.5ml) 0.5 mg HHN QIDRT [facility] Stop: 11/29/16 10:59 Last Admin: 10/02/16 12:25 Dose: 0.5 mg Lactulose (Cephulac) 10 gm PO DAILY [facility] Stop: 11/30/16 08:59 Last Admin: 10/02/16 08:41 Dose: 10 gm Levetiracetam 500 mg/ (Levetiracetam 250 mg) 750 mg PO BID [facility] Stop: 11/29/16 16:59 Last Admin: 10/02/16 08:45 Dose: 750 mg Lorazepam (Ativan) 1 mg IV Q4HR PRN; Protocol PRN Reason: Seizure Stop: 11/29/16 09:52 Last Admin: 10/02/16 11:10 Dose: 1 mg Meclizine HCl (Antivert) 25 mg PO DAILY PRN PRN Reason: Nausea / Vomiting Stop: 11/29/16 09:52 Ondansetron HCl (Zofran) 4 mg IV Q8H PRN PRN Reason: Nausea / Vomiting Stop: 11/29/16 09:52 Quetiapine Fumarate (Seroquel) 25 mg PO BID [facility] PRN Reason: Protocol Stop: 12/01/16 09:23 Trazodone HCl (Desyrel) 100 mg PO HS [facility] Stop: 11/29/16 20:59 General: alert HEENT: NC/AT, PERRLA Neck: Supple Lungs: CTAB Cardiovascular: RRR, Normal S1, Normal S2, without murmur Abdomen: soft non-tender, non-distended, positive bowel sound Neurological: no change Internal Medicine Assmt/Plan - Assessment Assessment: SEPSIS FEVER ALZHEIMER DEMENTIA SEIZURE - Plan Plan: continue ivabx supplemental o2 ivf for hydration cbc/bmp in am
[2016-10-02] MEDS ORDERED: Haloperidol Lactate 5 mg/mL 1mL Vial IM ONE (15:26)
[2016-10-02] MEDS: Diltiazem 30 mg Tab PO SCH (18:02)
--- NOTE | 2016-10-02 23:12 | Infectious Disease Prog Note ---
Infectious Disease Subjective - Review of Systems Service Date: 10/02/16 Subjective: No new change, there is no fever. Infectious Disease Objective - Results Result Diagrams: 10/02/16 05:00 10/02/16 05:00 Recent Labs: Laboratory Last Values WBC 6.5 Th/cmm (4.8-10.8) 10/02/16 05:00 RBC 3.61 Mil/cmm (3.80-5.80) L 10/02/16 05:00 Hgb 11.3 gm/dL (12.6-17.4) L 10/02/16 05:00 Hct 33.7 % (39.0-49.0) L 10/02/16 05:00 MCV 93.3 fl (80-99) 10/02/16 05:00 MCH 31.3 pg (27.0-31.0) H 10/02/16 05:00 MCHC Differential 33.5 pg (28.0-36.0) 10/02/16 05:00 RDW 12.2 % (11.5-20.0) 10/02/16 05:00 Plt Count 288 Th/cmm (150-400) 10/02/16 05:00 MPV 6.7 fl 10/02/16 05:00 Neutrophils % 79.9 % (40.0-80.0) 10/02/16 05:00 Band Neutrophils % 3 % (0-10) 09/30/16 10:40 Lymphocytes % 7.2 % (20.0-50.0) L 10/02/16 05:00 Monocytes % 7.8 % (2.0-10.0) 10/02/16 05:00 Eosinophils % 4.0 % (0.0-5.0) 10/02/16 05:00 Basophils % 1.1 % (0.0-2.0) 10/02/16 05:00 Neutrophils (Manual) 75 % (40-80) 09/30/16 10:40 Lymphocytes 14 % (20-50) L 09/30/16 10:40 Monocytes 8 % (2-10) 09/30/16 10:40 Eosinophils Not Reportable 09/30/16 10:40 Platelet Estimate ADEQUATE (NORMAL) 09/30/16 10:40 Sodium 134 mEq/L (136-145) L 10/02/16 05:00 Potassium 3.9 mEq/L (3.5-5.1) 10/02/16 05:00 Chloride 101 mEq/L (98-107) 10/02/16 05:00 Carbon Dioxide 30.0 mEq/L (21.0-31.0) 10/02/16 05:00 Anion Gap 6.9 (7.0-16.0) L 10/02/16 05:00 BUN 6 mg/dL (7-25) L 10/02/16 05:00 Creatinine 0.6 mg/dL (0.7-1.3) L 10/02/16 05:00 Est GFR ( Amer) > 60.0 ml/min 10/02/16 05:00 Est GFR (Non-Af Amer) > 60.0 ml/min 10/02/16 05:00 BUN/Creatinine Ratio 10.0 10/02/16 05:00 Glucose 109 mg/dL (70-105) H 10/02/16 05:00 Calcium 9.0 mg/dL (8.6-10.3) 10/02/16 05:00 Magnesium 1.9 mg/dL (1.9-2.7) 09/30/16 10:40 Total Bilirubin 0.4 mg/dL (0.3-1.0) 10/02/16 05:00 AST 24 U/L (13-39) 10/02/16 05:00 ALT 27 U/L (7-52) 10/02/16 05:00 Alkaline Phosphatase 65 U/L (34-104) 10/02/16 05:00 Ammonia 48 umol/L (16-53) 10/02/16 05:00 B-Natriuretic Peptide 42.4 pg/mL (5.0-100.0) 09/30/16 10:40 Total Protein 6.6 gm/dL (6.0-8.3) 10/02/16 05:00 Albumin 3.4 gm/dL (4.2-5.5) L 10/02/16 05:00 Globulin 3.2 gm/dL 10/02/16 05:00 Albumin/Globulin Ratio 1.1 (1.0-1.8) 10/02/16 05:00 Tumor Marker AFP 1.4 ng/mL (0.0-8.3) 10/01/16 10:40 Carcinoembryonic Ag 2.5 ng/mL (0.0-4.7) 10/01/16 10:40 Vitamin B12 600 pg/mL (211-946) 09/30/16 10:40 Folic Acid 13.4 ng/mL (>3.0) 09/30/16 10:40 TSH 0.88 uIU/ml (0.34-5.60) 09/30/16 10:40 Urine Source CATH 09/30/16 15:00 Urine Color YELLOW 09/30/16 15:00 Urine Clarity CLEAR (CLEAR) 09/30/16 15:00 Urine pH 7.5 09/30/16 15:00 Ur Specific [place] 1.020 (1.005-1.030) 09/30/16 15:00 Urine Protein 30 mg/dL (NEGATIVE) H 09/30/16 15:00 Urine Glucose (UA) NEGATIVE mg/dL (NEGATIVE) 09/30/16 15:00 Urine Ketones NEGATIVE mg/dL (NEGATIVE) 09/30/16 15:00 Urine Blood MODERATE (NEGATIVE) H 09/30/16 15:00 Urine Nitrate NEGATIVE (NEGATIVE) 09/30/16 15:00 Urine Bilirubin NEGATIVE (NEGATIVE) 09/30/16 15:00 Urine Urobilinogen 1.0 E.U./dL (0.2 - 1.0) 09/30/16 15:00 Ur Leukocyte Esterase NEGATIVE (NEGATIVE) 09/30/16 15:00 Urine RBC 25-50 /hpf (0-5) H 09/30/16 15:00 Urine WBC 0-2 /hpf (0-5) 09/30/16 15:00 Ur Epithelial Cells NONE SEEN /lpf (FEW) 09/30/16 15:00 Urine Bacteria NONE SEEN /hpf (NONE SEEN) 09/30/16 15:00 - Physical Exam Vitals and I&O: Vital Signs Temp 99.1 F 10/02/16 20:00 Pulse 115 10/02/16 20:00 Resp 18 10/02/16 20:00 BP 114/71 10/02/16 20:00 Pulse Ox 99 10/02/16 20:00 Intake & Output 10/02/16 10/02/16 10/03/16 06:59 18:59 06:59 Intake Total 750 780 Output Total 2200 5300 1700 Balance -1457 -1218 -1700 Intake: Intake, IV Amount 100 Levofloxacin 500mg/100mL 100 500 mg In 100 ml @ 100 mls/hr IV Q24HR [facility] Rx#: [id number] Oral 750 680 Output: Urine 2200 5300 1700 Other: # Bowel Movements 2 Stool Characteristics Soft Soft Formed [place] Active Medications: Current Medications Acetaminophen (Tylenol) 650 mg PO Q4HR PRN PRN Reason: Pain or Fever >101 Stop: 11/29/16 09:52 Last Admin: 10/01/16 12:07 Dose: 650 mg Al Hydrox/Mg Hydrox/Simethicone (Maalox) 30 ml PO Q6HR PRN PRN Reason: GI DISTRESS Stop: 11/29/16 09:52 Albuterol Sulfate (Albuterol 2.5mg/3ml Neb Ud) 2.5 mg HHN QIDRT [facility] Stop: 11/29/16 10:59 Last Admin: 10/02/16 16:09 Dose: 2.5 mg Baclofen (Lioresal) 15 mg PO BID [facility] Stop: 11/29/16 16:59 Last Admin: 10/02/16 17:40 Dose: 15 mg Diltiazem HCl (Cardizem) 20 mg IVP Q4H PRN PRN Reason: FOR HR >120 Stop: 11/30/16 16:05 Last Admin: 10/01/16 16:42 Dose: 20 mg Diltiazem HCl (Cardizem) 60 mg PO Q6HR [facility] Stop: 12/01/16 17:59 Last Admin: 10/02/16 18:02 Dose: 60 mg Guaifenesin (Robitussin) 200 mg PO Q4HR PRN PRN Reason: Cough or Congestion Stop: 11/29/16 09:52 Levofloxacin (Levaquin Pb) 500 mg in 100 mls @ 100 mls/hr IV Q24HR [facility] Stop: 11/29/16 09:59 Last Infusion: 10/02/16 12:00 Dose: Infused Dextrose/Sodium Chloride (D5-0.45ns) 1,000 mls @ 75 mls/hr IV .[id number] [facility] Stop: 11/29/16 09:59 Ipratropium [place] (Atrovent Neb 0.5mg/2.5ml) 0.5 mg HHN QIDRT [facility] Stop: 11/29/16 10:59 Last Admin: 10/02/16 16:09 Dose: 0.5 mg Lactulose (Cephulac) 10 gm PO DAILY [facility] Stop: 11/30/16 08:59 Last Admin: 10/02/16 08:41 Dose: 10 gm Levetiracetam 500 mg/ (Levetiracetam 250 mg) 750 mg PO BID [facility] Stop: 11/29/16 16:59 Last Admin: 10/02/16 18:08 Dose: 750 mg Lorazepam (Ativan) 1 mg IV Q4HR PRN; Protocol PRN Reason: Seizure Stop: 11/29/16 09:52 Last Admin: 10/02/16 16:20 Dose: 1 mg Meclizine HCl (Antivert) 25 mg PO DAILY PRN PRN Reason: Nausea / Vomiting Stop: 11/29/16 09:52 Ondansetron HCl (Zofran) 4 mg IV Q8H PRN PRN Reason: Nausea / Vomiting Stop: 11/29/16 09:52 Quetiapine Fumarate (Seroquel) 25 mg PO BID [facility] PRN Reason: Protocol Stop: 12/01/16 16:59 Last Admin: 10/02/16 18:08 Dose: 25 mg Trazodone HCl (Desyrel) 100 mg PO HS [facility] Stop: 11/29/16 20:59 Last Admin: 10/02/16 21:25 Dose: 100 mg General: no acute distress, well developed, well nourished HEENT: atraumatic, normocephalic, PERRLA, EOMI Neck: supple Cardiovascular: S1S2, regular Lungs: clear to auscultation bilaterally, clear to percussion Abdomen: soft, no tender, no distended Extremities: no cyanosis, no clubbing, no edema Neurological: other (confused.) Skin: intact Infectious Disease Assmt/Plan - Assessment Assessment: IMPRESSION: 1. Fever. 2. Leukocytosis, improved, suspect reactive, rule out sepsis. 3. Dementia. 4. Benign prostatic hyperplasia. 5. Hypertension. - Plan Plan: RECOMMENDATIONS: Continue Levaquin.
[2016-10-03] MEDS: Diltiazem 30 mg Tab PO SCH ×5 (00:15→20:31)
[2016-10-03] MEDS: D5-0.45NS 1,000 ML IV SCH ×2 (00:16→17:51)
--- NOTE | 2016-10-03 00:23 | Consultation ---
The patient of Dr. Mcfarland. HISTORY AND PHYSICAL: This is a 66-year-old male patient who has dementia, was seen at the Emergency Room in [facility]. The patient was transferred here due to insurance reason. The patient developed sinus tachycardia and hence Cardiology consult was requested. PAST MEDICAL HISTORY: The patient has dementia, seizure disorder, BPH. FAMILY HISTORY: Unremarkable. SOCIAL HISTORY: No history of smoking, alcohol abuse. ALLERGIES: No known allergies. PHYSICAL EXAMINATION: VITAL SIGNS: Blood pressure 130/80, pulse 110, respirations 20. HEAD: Normocephalic. No lumps or bumps. EYES: Pupils equal, reactive to light. Fundi show AV nicking, sclerae white, conjunctivae pink. NECK: Carotid 2+. Normal upstroke. JVD flat. Thyroid not palpable. Lymph nodes not palpable. CHEST: Shows increased AP diameter. No kyphosis, scoliosis. LUNGS: Bilateral bronchovesicular sounds, occasional wheeze, no rales. HEART: PMI fifth intercostal space with lateral to midclavicular line. S1, S2. No S3, S4. Systolic murmur, grade 2/6, lower left sternal border without radiation. ABDOMEN: Soft. Liver, spleen not palpable. No organomegaly. Bowel sounds active. NEUROLOGIC: Unremarkable except seizure disorder. EXTREMITIES: Peripheral pulses 1+. No pedal edema. CLINICAL IMPRESSION: 1. Supraventricular tachycardia. 2. Grand mal seizures, urinary tract infection, dementia, BPH and stage 1 ulcers in both the heels. PLAN: We will give the patient Cardizem IV p.r.n. to control the heart rate and also start the patient on oral Cardizem. JOB# [id number]
[2016-10-03] MEDS: Albuterol Nebulizer 2.5mg/3mL HHN SCH ×4 (07:59→19:24)
[2016-10-03] MEDS: Ipratropium Neb 0.5 mg/2.5 mL UD HHN SCH ×4 (07:59→19:24)
--- NOTE | 2016-10-03 09:28 | History & Physical ---
HISTORY OF PRESENT ILLNESS: A 66-year-old male. The patient's family by the bedside. The patient admitted with a fevers and chills, somewhat more drowsy than before though the family notes that he is currently at his baseline. He has underlying diagnosis of Alzheimer's dementia, which has been there since the last 10 years or so. He has been on a number of hospitals including [facility]. He follows with neurologist ____. The patient's other issues are seizures. I do not know what workup he has, but his diagnosis, the family says ____ was Alzheimer. PAST MEDICAL HISTORY: 1. Dementia. 2. Seizures. 3. Benign prostatic hypertrophy. SOCIAL HISTORY: Does not smoke or drink. REVIEW OF SYSTEMS: The patient with fever now. No chest pain. No shortness of breath. No cough, sputum or hemoptysis. The patient at times is agitated. REVIEW OF SYSTEMS: A 12-point negative except for above. No ____ seizures noted in the last 24 hours. PHYSICAL EXAMINATION: VITAL SIGNS: Temperature 99.1, blood pressure 120/85, pulse is around about 94. NECK: Supple. No bruits. HEART: Sounds S1, S2. LUNGS: Clear. ABDOMEN: Soft. NEUROLOGIC: The patient is lying in bed, eyes closed. He will respond to his name. He does not talk much with me. We will follow with some ____. Pupils react to light. The patient tends to look straight ahead. He will look to the right and left. Motor: Slightly increased tone, but no marked spasticity or rigidity. The patient will withdraw upper and lower extremities. Reflexes are 1-2+. INVESTIGATIONS: No neuro diagnostic workup. LABORATORY DATA: WBC is 6.5, hemoglobin 11.3, platelets normal. Sodium 134. Glucose okay. UA, wbc 0-2. IMPRESSION: 1. Underlying dementia. 2. Encephalopathy. 3. Sepsis. 4. Hypertension. 5. Benign prostatic hypertrophy. MANAGEMENT: At the moment, continue present management. We will follow with the patient. JOB# [id number]
[2016-10-03] MEDS: Lactulose 10 Gm/15 mL 30mL UDC PO SCH ×2 (10:36→17:47)
[2016-10-03] MEDS: Levofloxacin 500mg/100mL 500 MG/100 ML BAG IV SCH (10:42)
--- NOTE | 2016-10-03 11:36 | Diagnostic Imaging Report ---
CT Chest without IV contrast HISTORY: Mass COMPARISON: CT abdomen and pelvis performed the same day. Technique: Axial images were obtained from the base of the neck to the upper abdomen without IV contrast. Reconstructions were made. Total DLP 316 CTD I 8 Findings: Exam is limited due to lack of IV contrast. No evidence of mediastinal lymphadenopathy. Heart size is normal. Mild atherosclerosis is noted. No pericardial effusion identified. Chronic lung changes are seen. A small to moderate left and small right effusion is seen with bibasilar passive atelectatic and consolidative changes. Additional atelectatic changes of the lungs are also noted. There is a faint 4 mm nodule along the right middle lobe image 4, series 19. An additional 6 mm nodularity of the right upper lobe is seen adjacent to the pleura Image 4, series 37 and image 14, series 3. Additional 4 mm nodularity right apex is also noted (image 12, series 3). Atelectatic and hypoventilatory changes of the lungs are noted. Degenerative changes of the spine is noted with multilevel bridging syndesmophyte formation. IMPRESSION: Limited exam due to lack of IV contrast Small to moderate left and small right effusion and bibasal passive atelectatic and consolidative changes. Pneumonia of the lung bases cannot be excluded Small nodules primarily involving the right lung greatest within the right apex along the pleura measuring 6 mm. Findings are nonspecific may be due to infectious, inflammatory or less likely neoplastic process. Correlation with old exams be helpful comparison. In addition, a follow-up CT chest in 4-6 months is recommended for further assessment/monitoring. Chronic lung changes. Mild atherosclerotic vascular disease.
--- NOTE | 2016-10-03 11:41 | Diagnostic Imaging Report ---
CT abdomen and pelvis with intravenous contrast Indication: Abdominal pain Comparison: CT chest performed the same day, Technique: Axial images were obtained from the lung bases to the bilateral proximal femurs with IV contrast. Coronal reconstructions were made. total DLP: 1024, CTDI20.7 FINDINGS: Bilateral pleural effusions are seen with bibasal consolidative changes. Exam is limited due to patient positioning. Hepatic cyst are noted the largest within the inferior right lobe measuring 1.7 cm. No evidence of focal splenic lesions. Limited evaluation of the pancreas demonstrates no obvious focal lesions. No focal adrenal lesions. There is mild bilateral hydronephrosis. Arana catheter is seen with pockets of gas in the urinary bladder. There is massive distal fecal impaction. Diffuse gas-filled loops of bowel are seen with copious stool noted greatest in the right colon. Small amount of fluid is seen within the right lower quadrant. The appendix is not visualized. No evidence of free air. Mild atherosclerosis is noted. The osseous structures are intact. IMPRESSION: Massive distal fecal impaction involving the rectum and sigmoid colon. There is also copious amount of stool in the ascending colon. Small amount of free fluid in the right lower quadrant. Note that the appendix was not not visualized. Please correlate clinically. Arana catheter with pockets of gas in the urinary bladder. Mild bilateral hydronephrosis which may be sequela mass effect from patient's massive distal fecal impaction upon the urinary bladder. Bilateral effusions and bibasal consolidative changes.
[2016-10-03] MEDS ORDERED: Fleet Enema 135 mL RC ONE (15:25)
--- NOTE | 2016-10-03 15:29 | Internal Medicine Prog Note ---
Internal Medicine Subjective - Subjective Patient seen and examined:: with staff, chart reviewed Patient is:: awake, non-verbal, non-interactive, in bed Patient Complaints of:: congestion Per staff patient is:: no adverse event, poor appetite, agitated, combative, noncompliant, confused Internal Medicine Objective - Results Result Diagrams: 10/02/16 05:00 10/02/16 05:00 Recent Labs: Laboratory Last Values WBC 6.5 Th/cmm (4.8-10.8) 10/02/16 05:00 RBC 3.61 Mil/cmm (3.80-5.80) L 10/02/16 05:00 Hgb 11.3 gm/dL (12.6-17.4) L 10/02/16 05:00 Hct 33.7 % (39.0-49.0) L 10/02/16 05:00 MCV 93.3 fl (80-99) 10/02/16 05:00 MCH 31.3 pg (27.0-31.0) H 10/02/16 05:00 MCHC Differential 33.5 pg (28.0-36.0) 10/02/16 05:00 RDW 12.2 % (11.5-20.0) 10/02/16 05:00 Plt Count 288 Th/cmm (150-400) 10/02/16 05:00 MPV 6.7 fl 10/02/16 05:00 Neutrophils % 79.9 % (40.0-80.0) 10/02/16 05:00 Band Neutrophils % 3 % (0-10) 09/30/16 10:40 Lymphocytes % 7.2 % (20.0-50.0) L 10/02/16 05:00 Monocytes % 7.8 % (2.0-10.0) 10/02/16 05:00 Eosinophils % 4.0 % (0.0-5.0) 10/02/16 05:00 Basophils % 1.1 % (0.0-2.0) 10/02/16 05:00 Neutrophils (Manual) 75 % (40-80) 09/30/16 10:40 Lymphocytes 14 % (20-50) L 09/30/16 10:40 Monocytes 8 % (2-10) 09/30/16 10:40 Eosinophils Not Reportable 09/30/16 10:40 Platelet Estimate ADEQUATE (NORMAL) 09/30/16 10:40 Sodium 134 mEq/L (136-145) L 10/02/16 05:00 Potassium 3.9 mEq/L (3.5-5.1) 10/02/16 05:00 Chloride 101 mEq/L (98-107) 10/02/16 05:00 Carbon Dioxide 30.0 mEq/L (21.0-31.0) 10/02/16 05:00 Anion Gap 6.9 (7.0-16.0) L 10/02/16 05:00 BUN 6 mg/dL (7-25) L 10/02/16 05:00 Creatinine 0.6 mg/dL (0.7-1.3) L 10/02/16 05:00 Est GFR ( Amer) > 60.0 ml/min 10/02/16 05:00 Est GFR (Non-Af Amer) > 60.0 ml/min 10/02/16 05:00 BUN/Creatinine Ratio 10.0 10/02/16 05:00 Glucose 109 mg/dL (70-105) H 10/02/16 05:00 Calcium 9.0 mg/dL (8.6-10.3) 10/02/16 05:00 Magnesium 1.9 mg/dL (1.9-2.7) 09/30/16 10:40 Total Bilirubin 0.4 mg/dL (0.3-1.0) 10/02/16 05:00 AST 24 U/L (13-39) 10/02/16 05:00 ALT 27 U/L (7-52) 10/02/16 05:00 Alkaline Phosphatase 65 U/L (34-104) 10/02/16 05:00 Ammonia 48 umol/L (16-53) 10/02/16 05:00 Creatine Kinase 115 U/L (30-223) 10/03/16 05:02 B-Natriuretic Peptide 42.4 pg/mL (5.0-100.0) 09/30/16 10:40 Total Protein 6.6 gm/dL (6.0-8.3) 10/02/16 05:00 Albumin 3.4 gm/dL (4.2-5.5) L 10/02/16 05:00 Globulin 3.2 gm/dL 10/02/16 05:00 Albumin/Globulin Ratio 1.1 (1.0-1.8) 10/02/16 05:00 Tumor Marker AFP 1.4 ng/mL (0.0-8.3) 10/01/16 10:40 Carcinoembryonic Ag 2.5 ng/mL (0.0-4.7) 10/01/16 10:40 Vitamin B12 600 pg/mL (211-946) 09/30/16 10:40 Folic Acid 13.4 ng/mL (>3.0) 09/30/16 10:40 TSH 0.88 uIU/ml (0.34-5.60) 09/30/16 10:40 Urine Source CATH 09/30/16 15:00 Urine Color YELLOW 09/30/16 15:00 Urine Clarity CLEAR (CLEAR) 09/30/16 15:00 Urine pH 7.5 09/30/16 15:00 Ur Specific [place] 1.020 (1.005-1.030) 09/30/16 15:00 Urine Protein 30 mg/dL (NEGATIVE) H 09/30/16 15:00 Urine Glucose (UA) NEGATIVE mg/dL (NEGATIVE) 09/30/16 15:00 Urine Ketones NEGATIVE mg/dL (NEGATIVE) 09/30/16 15:00 Urine Blood MODERATE (NEGATIVE) H 09/30/16 15:00 Urine Nitrate NEGATIVE (NEGATIVE) 09/30/16 15:00 Urine Bilirubin NEGATIVE (NEGATIVE) 09/30/16 15:00 Urine Urobilinogen 1.0 E.U./dL (0.2 - 1.0) 09/30/16 15:00 Ur Leukocyte Esterase NEGATIVE (NEGATIVE) 09/30/16 15:00 Urine RBC 25-50 /hpf (0-5) H 09/30/16 15:00 Urine WBC 0-2 /hpf (0-5) 09/30/16 15:00 Ur Epithelial Cells NONE SEEN /lpf (FEW) 09/30/16 15:00 Urine Bacteria NONE SEEN /hpf (NONE SEEN) 09/30/16 15:00 - Physical Exam Vitals and I&O: Vital Signs Temp 98.6 F 10/03/16 12:00 Pulse 98 10/03/16 13:03 Resp 20 10/03/16 13:03 BP 109/60 10/03/16 12:00 Pulse Ox 98 10/03/16 13:03 Intake & Output 10/02/16 10/03/16 10/03/16 18:59 06:59 18:59 Intake Total 780 100 Output Total 5300 3300 Balance -4520 -3300 100 Intake: Intake, IV Amount 100 100 Levofloxacin 500mg/100mL 100 100 500 mg In 100 ml @ 100 mls/hr IV Q24HR [facility] Rx#: [id number] Oral 680 Output: Urine 5300 3300 Other: # Bowel Movements 2 0 Stool Characteristics Soft Soft Brown Brown Active Medications: Current Medications Acetaminophen (Tylenol) 650 mg PO Q4HR PRN PRN Reason: Pain or Fever >101 Stop: 11/29/16 09:52 Last Admin: 10/01/16 12:07 Dose: 650 mg Al Hydrox/Mg Hydrox/Simethicone (Maalox) 30 ml PO Q6HR PRN PRN Reason: GI DISTRESS Stop: 11/29/16 09:52 Albuterol Sulfate (Albuterol 2.5mg/3ml Neb Ud) 2.5 mg HHN QIDRT [facility] Stop: 11/29/16 10:59 Last Admin: 10/03/16 13:02 Dose: 2.5 mg Baclofen (Lioresal) 15 mg PO BID [facility] Stop: 11/29/16 16:59 Last Admin: 10/03/16 10:37 Dose: 15 mg Diltiazem HCl (Cardizem) 20 mg IVP Q4H PRN PRN Reason: FOR HR >120 Stop: 11/30/16 16:05 Last Admin: 10/01/16 16:42 Dose: 20 mg Diltiazem HCl (Cardizem) 60 mg PO Q6HR [facility] Stop: 12/01/16 17:59 Last Admin: 10/03/16 12:38 Dose: Not Given Guaifenesin (Robitussin) 200 mg PO Q4HR PRN PRN Reason: Cough or Congestion Stop: 11/29/16 09:52 Levofloxacin (Levaquin Pb) 500 mg in 100 mls @ 100 mls/hr IV Q24HR [facility] Stop: 11/29/16 09:59 Last Infusion: 10/03/16 11:00 Dose: Infused Dextrose/Sodium Chloride (D5-0.45ns) 1,000 mls @ 75 mls/hr IV .[id number] [facility] Stop: 11/29/16 09:59 Last Admin: 10/03/16 00:16 Dose: 75 mls/hr Ipratropium [place] (Atrovent Neb 0.5mg/2.5ml) 0.5 mg HHN QIDRT [facility] Stop: 11/29/16 10:59 Last Admin: 10/03/16 13:02 Dose: 0.5 mg Levetiracetam 500 mg/ (Levetiracetam 250 mg) 750 mg PO BID [facility] Stop: 11/29/16 16:59 Last Admin: 10/03/16 10:36 Dose: 750 mg Lorazepam (Ativan) 1 mg IV Q4HR PRN; Protocol PRN Reason: Seizure Stop: 11/29/16 09:52 Last Admin: 10/02/16 16:20 Dose: 1 mg Meclizine HCl (Antivert) 25 mg PO DAILY PRN PRN Reason: Nausea / Vomiting Stop: 11/29/16 09:52 Ondansetron HCl (Zofran) 4 mg IV Q8H PRN PRN Reason: Nausea / Vomiting Stop: 11/29/16 09:52 Quetiapine Fumarate (Seroquel) 25 mg PO BID [facility] PRN Reason: Protocol Stop: 12/01/16 16:59 Last Admin: 10/03/16 10:37 Dose: 25 mg Trazodone HCl (Desyrel) 100 mg PO HS [facility] Stop: 11/29/16 20:59 Last Admin: 10/02/16 21:25 Dose: 100 mg General: lethargic, demented HEENT: NC/AT, PERRLA Neck: Supple, No JVD Lungs: congested Cardiovascular: RRR, Normal S1, Normal S2 Abdomen: soft non-tender, thin, positive bowel sound Extremities: excoriation, contracture Neurological: no change Internal Medicine Assmt/Plan - Assessment Assessment: SEPSIS FEVER ALZHEIMER DEMENTIA SEIZURE svt hematuria anemia rectal impaction - Plan Plan: cont on iv abx check cx check ct chest dw family at bedside dw rn add lactulose, gi consult for endoscopy
[2016-10-03] MEDS ORDERED: Sodium Chloride 0.9% 250 ML IV ONE (17:47)
[2016-10-04] MEDS: Diltiazem 30 mg Tab PO SCH ×3 (02:23→12:31)
[2016-10-04] MEDS: Albuterol Nebulizer 2.5mg/3mL HHN SCH ×5 (07:22→21:05)
[2016-10-04] MEDS: Ipratropium Neb 0.5 mg/2.5 mL UD HHN SCH ×5 (07:22→21:05)
[2016-10-04 08:13] LABS: % BASOPHILS 0.9 % (0.0-2.0); % EOSINOPHILS 7.7 % (0.0-5.0); % LYMPHOCYTES 14.3 % (20.0-50.0); % NEUTROPHILS 68.1 % (40.0-80.0); HEMATOCRIT 34.4 % (39.0-49.0); HEMOGLOBIN 11.7 gm/dL (12.6-17.4); MEAN CELL VOLUME 92.7 fl (80-99); MEAN CORPUSCULAR HEMOGLOBIN 31.4 pg (27.0-31.0); MEAN CORPUSCULAR HGB CONC 33.8 pg (28.0-36.0); MEAN PLATELET VOLUME 6.6 fl; NEUTROPHILE ABSOLUTE 4.8 Th/cmm (1.8-8.0); PLATELET COUNT 325 Th/cmm (150-400); RED BLOOD COUNT 3.71 Mil/cmm (3.80-5.80); RED CELL DISTRIBUTION WIDTH 12.2 % (11.5-20.0)
[2016-10-04 08:21] LABS: ALKALINE PHOSPHATASE 74 U/L (34-104); ANION GAP 4.6 (7.0-16.0); BILIRUBIN,TOTAL 0.4 mg/dL (0.3-1.0); BUN - UREA NITROGEN 10 mg/dL (7-25); BUN/CREATININE RATIO 14.3; CALCIUM SERUM 9.1 mg/dL (8.6-10.3); CARBON DIOXIDE 31.5 mEq/L (21.0-31.0); CHLORIDE 102 mEq/L (98-107); CREATININE - SERUM 0.7 mg/dL (0.7-1.3); GLUCOSE 112 mg/dL (70-105); MAGNESIUM 1.9 mg/dL (1.9-2.7); POTASSIUM SERUM 4.1 mEq/L (3.5-5.1); SGOT 34 U/L (13-39); SGPT/ALT 40 U/L (7-52); SODIUM SERUM 134 mEq/L (136-145)
[2016-10-04 08:57] LABS: BNP 5.7 pg/mL (5.0-100.0)
[2016-10-04] MEDS: Lactulose 10 Gm/15 mL 30mL UDC PO SCH ×2 (09:20→16:54)
[2016-10-04] MEDS: Levofloxacin 500mg/100mL 500 MG/100 ML BAG IV SCH (10:01)
--- NOTE | 2016-10-04 12:43 | Internal Medicine Prog Note ---
Internal Medicine Subjective - Subjective Service Date: 10/04/16 Patient seen and examined:: with staff Patient is:: awake Per staff patient is:: no adverse event Internal Medicine Objective - Results Result Diagrams: 10/04/16 07:45 10/04/16 07:45 Recent Labs: Laboratory Last Values WBC 7.0 Th/cmm (4.8-10.8) 10/04/16 07:45 RBC 3.71 Mil/cmm (3.80-5.80) L 10/04/16 07:45 Hgb 11.7 gm/dL (12.6-17.4) L 10/04/16 07:45 Hct 34.4 % (39.0-49.0) L 10/04/16 07:45 MCV 92.7 fl (80-99) 10/04/16 07:45 MCH 31.4 pg (27.0-31.0) H 10/04/16 07:45 MCHC Differential 33.8 pg (28.0-36.0) 10/04/16 07:45 RDW 12.2 % (11.5-20.0) 10/04/16 07:45 Plt Count 325 Th/cmm (150-400) 10/04/16 07:45 MPV 6.6 fl 10/04/16 07:45 Neutrophils % 68.1 % (40.0-80.0) 10/04/16 07:45 Band Neutrophils % 3 % (0-10) 09/30/16 10:40 Lymphocytes % 14.3 % (20.0-50.0) L 10/04/16 07:45 Monocytes % 9.0 % (2.0-10.0) 10/04/16 07:45 Eosinophils % 7.7 % (0.0-5.0) H 10/04/16 07:45 Basophils % 0.9 % (0.0-2.0) 10/04/16 07:45 Neutrophils (Manual) 75 % (40-80) 09/30/16 10:40 Lymphocytes 14 % (20-50) L 09/30/16 10:40 Monocytes 8 % (2-10) 09/30/16 10:40 Eosinophils Not Reportable 09/30/16 10:40 Platelet Estimate ADEQUATE (NORMAL) 09/30/16 10:40 Sodium 134 mEq/L (136-145) L 10/04/16 07:45 Potassium 4.1 mEq/L (3.5-5.1) 10/04/16 07:45 Chloride 102 mEq/L (98-107) 10/04/16 07:45 Carbon Dioxide 31.5 mEq/L (21.0-31.0) H 10/04/16 07:45 Anion Gap 4.6 (7.0-16.0) L 10/04/16 07:45 BUN 10 mg/dL (7-25) 10/04/16 07:45 Creatinine 0.7 mg/dL (0.7-1.3) 10/04/16 07:45 Est GFR ( Amer) > 60.0 ml/min 10/04/16 07:45 Est GFR (Non-Af Amer) > 60.0 ml/min 10/04/16 07:45 BUN/Creatinine Ratio 14.3 10/04/16 07:45 Glucose 112 mg/dL (70-105) H 10/04/16 07:45 Calcium 9.1 mg/dL (8.6-10.3) 10/04/16 07:45 Magnesium 1.9 mg/dL (1.9-2.7) 10/04/16 07:45 Total Bilirubin 0.4 mg/dL (0.3-1.0) 10/04/16 07:45 AST 34 U/L (13-39) 10/04/16 07:45 ALT 40 U/L (7-52) 10/04/16 07:45 Alkaline Phosphatase 74 U/L (34-104) 10/04/16 07:45 Ammonia 37 umol/L (16-53) 10/04/16 07:45 Creatine Kinase 115 U/L (30-223) 10/03/16 05:02 B-Natriuretic Peptide 5.7 pg/mL (5.0-100.0) 10/04/16 07:45 Total Protein 6.9 gm/dL (6.0-8.3) 10/04/16 07:45 Albumin 3.4 gm/dL (4.2-5.5) L 10/04/16 07:45 Globulin 3.5 gm/dL 10/04/16 07:45 Albumin/Globulin Ratio 1.0 (1.0-1.8) 10/04/16 07:45 Tumor Marker AFP 1.4 ng/mL (0.0-8.3) 10/01/16 10:40 Carcinoembryonic Ag 2.5 ng/mL (0.0-4.7) 10/01/16 10:40 Vitamin B12 600 pg/mL (211-946) 09/30/16 10:40 Folic Acid 13.4 ng/mL (>3.0) 09/30/16 10:40 TSH 0.88 uIU/ml (0.34-5.60) 09/30/16 10:40 Urine Source CATH 09/30/16 15:00 Urine Color YELLOW 09/30/16 15:00 Urine Clarity CLEAR (CLEAR) 09/30/16 15:00 Urine pH 7.5 09/30/16 15:00 Ur Specific [place] 1.020 (1.005-1.030) 09/30/16 15:00 Urine Protein 30 mg/dL (NEGATIVE) H 09/30/16 15:00 Urine Glucose (UA) NEGATIVE mg/dL (NEGATIVE) 09/30/16 15:00 Urine Ketones NEGATIVE mg/dL (NEGATIVE) 09/30/16 15:00 Urine Blood MODERATE (NEGATIVE) H 09/30/16 15:00 Urine Nitrate NEGATIVE (NEGATIVE) 09/30/16 15:00 Urine Bilirubin NEGATIVE (NEGATIVE) 09/30/16 15:00 Urine Urobilinogen 1.0 E.U./dL (0.2 - 1.0) 09/30/16 15:00 Ur Leukocyte Esterase NEGATIVE (NEGATIVE) 09/30/16 15:00 Urine RBC 25-50 /hpf (0-5) H 09/30/16 15:00 Urine WBC 0-2 /hpf (0-5) 09/30/16 15:00 Ur Epithelial Cells NONE SEEN /lpf (FEW) 09/30/16 15:00 Urine Bacteria NONE SEEN /hpf (NONE SEEN) 09/30/16 15:00 - Physical Exam Vitals and I&O: Vital Signs Temp 97.5 F 10/04/16 12:07 Pulse 93 10/04/16 12:07 Resp 18 10/04/16 12:07 BP 95/56 10/04/16 12:07 Pulse Ox 99 10/04/16 12:07 Intake & Output 10/03/16 10/04/16 10/04/16 18:59 06:59 18:59 Intake Total 1400 150 Output Total 900 1700 Balance 500 -1550 Intake: Intake, IV Amount 1100 D5-0.45NS 1,000 ml @ 75 1000 mls/hr IV .[id number] [facility] Rx #:[id number] Levofloxacin 500mg/100mL 100 500 mg In 100 ml @ 100 mls/hr IV Q24HR [facility] Rx#: [id number] Oral 300 150 Output: Urine 900 1700 Other: # Voids 1 # Bowel Movements 3 3 Stool Characteristics Soft Soft Brown Brown Active Medications: Current Medications Acetaminophen (Tylenol) 650 mg PO Q4HR PRN PRN Reason: Pain or Fever >101 Stop: 11/29/16 09:52 Last Admin: 10/03/16 19:50 Dose: 650 mg Al Hydrox/Mg Hydrox/Simethicone (Maalox) 30 ml PO Q6HR PRN PRN Reason: GI DISTRESS Stop: 11/29/16 09:52 Albuterol Sulfate (Albuterol 2.5mg/3ml Neb Ud) 2.5 mg HHN QIDRT [facility] Stop: 11/29/16 10:59 Last Admin: 10/04/16 11:50 Dose: 2.5 mg Baclofen (Lioresal) 15 mg PO BID [facility] Stop: 11/29/16 16:59 Last Admin: 10/04/16 09:20 Dose: 15 mg Diltiazem HCl (Cardizem) 20 mg IVP Q4H PRN PRN Reason: FOR HR >120 Stop: 11/30/16 16:05 Last Admin: 10/01/16 16:42 Dose: 20 mg Diltiazem HCl (Cardizem) 60 mg PO Q6HR [facility] Stop: 12/01/16 17:59 Last Admin: 10/04/16 12:31 Dose: Not Given Guaifenesin (Robitussin) 200 mg PO Q4HR PRN PRN Reason: Cough or Congestion Stop: 11/29/16 09:52 Levofloxacin (Levaquin Pb) 500 mg in 100 mls @ 100 mls/hr IV Q24HR [facility] Stop: 11/29/16 09:59 Last Admin: 10/04/16 10:01 Dose: 100 mls/hr Dextrose/Sodium Chloride (D5-0.45ns) 1,000 mls @ 75 mls/hr IV .[id number] [facility] Stop: 11/29/16 09:59 Last Admin: 10/03/16 17:51 Dose: 75 mls/hr Ipratropium [place] (Atrovent Neb 0.5mg/2.5ml) 0.5 mg HHN QIDRT [facility] Stop: 11/29/16 10:59 Last Admin: 10/04/16 11:50 Dose: 0.5 mg Lactulose (Cephulac) 20 gm PO BID [facility] Stop: 12/02/16 16:59 Last Admin: 10/04/16 09:20 Dose: 20 gm Levetiracetam 500 mg/ (Levetiracetam 250 mg) 750 mg PO BID [facility] Stop: 11/29/16 16:59 Last Admin: 10/04/16 09:14 Dose: 750 mg Lorazepam (Ativan) 1 mg IV Q4HR PRN; Protocol PRN Reason: Seizure Stop: 11/29/16 09:52 Last Admin: 10/02/16 16:20 Dose: 1 mg Meclizine HCl (Antivert) 25 mg PO DAILY PRN PRN Reason: Nausea / Vomiting Stop: 11/29/16 09:52 Ondansetron HCl (Zofran) 4 mg IV Q8H PRN PRN Reason: Nausea / Vomiting Stop: 11/29/16 09:52 Quetiapine Fumarate (Seroquel) 25 mg PO BID [facility] PRN Reason: Protocol Stop: 12/01/16 16:59 Last Admin: 10/04/16 09:20 Dose: 25 mg Trazodone HCl (Desyrel) 100 mg PO HS [facility] Stop: 11/29/16 20:59 Last Admin: 10/03/16 20:32 Dose: 100 mg General: alert HEENT: NC/AT Neck: Supple Lungs: CTAB Cardiovascular: RRR, Normal S1, Normal S2, without murmur Abdomen: soft non-tender, non-distended, positive bowel sound Neurological: no change Internal Medicine Assmt/Plan - Assessment Assessment: SEPSIS FEVER ALZHEIMER DEMENTIA SEIZURE - Plan Plan: continue ivabx supplemental o2 ivf for hydration cbc/bmp in am
[2016-10-04] MEDS ORDERED: Fleet Enema 135 mL RC ONE (13:01)
[2016-10-05] MEDS: Diltiazem 30 mg Tab PO SCH ×2 (01:15→06:08)
[2016-10-05 05:21] LABS: % BASOPHILS 0.7 % (0.0-2.0); % EOSINOPHILS 9.7 % (0.0-5.0); % LYMPHOCYTES 14.4 % (20.0-50.0); % MONOCYTES 11.2 % (2.0-10.0); HEMATOCRIT 32.4 % (39.0-49.0); HEMOGLOBIN 10.9 gm/dL (12.6-17.4); MEAN CELL VOLUME 91.2 fl (80-99); MEAN CORPUSCULAR HEMOGLOBIN 30.8 pg (27.0-31.0); MEAN CORPUSCULAR HGB CONC 33.7 pg (28.0-36.0); MEAN PLATELET VOLUME 6.6 fl; NEUTROPHILE ABSOLUTE 3.5 Th/cmm (1.8-8.0); PLATELET COUNT 358 Th/cmm (150-400); RED BLOOD COUNT 3.56 Mil/cmm (3.80-5.80); RED CELL DISTRIBUTION WIDTH 12.3 % (11.5-20.0); WHITE BLOOD COUNT 5.4 Th/cmm (4.8-10.8)
[2016-10-05 05:49] LABS: BUN - UREA NITROGEN 12 mg/dL (7-25); CALCIUM SERUM 8.8 mg/dL (8.6-10.3); CARBON DIOXIDE 28.1 mEq/L (21.0-31.0); CHLORIDE 102 mEq/L (98-107); CREATININE - SERUM 0.5 mg/dL (0.7-1.3); GLUCOSE 122 mg/dL (70-105); POTASSIUM SERUM 4.1 mEq/L (3.5-5.1); SODIUM SERUM 133 mEq/L (136-145)
[2016-10-05] MEDS: Albuterol Nebulizer 2.5mg/3mL HHN SCH ×2 (07:09→11:14)
[2016-10-05] MEDS: Ipratropium Neb 0.5 mg/2.5 mL UD HHN SCH ×2 (07:09→11:14)
[2016-10-05] MEDS: Lactulose 10 Gm/15 mL 30mL UDC PO SCH (08:56)
[2016-10-05] MEDS ORDERED: POLYETHYLENE GLYCOL 3350 17 GM PACK PO SCH (09:00)
[2016-10-05 09:22] LABS: FOLIC ACID 14.1 ng/mL (>3.0)
--- NOTE | 2016-10-05 12:03 | Consultation ---
INPATIENT GASTROINTESTINAL CONSULTATION REFERRING PHYSICIAN: Dr. Mcfarland. REASON FOR CONSULTATION: Constipation, change in bowel habits. HISTORY OF PRESENT ILLNESS: A 66-year-old male who was brought to the hospital initially with fevers. GI was consulted because of constipation. The patient is a poor historian and unable to give any meaningful history. PAST MEDICAL HISTORY: Dementia, seizure disorder, BPH. PAST SURGICAL HISTORY: BPH surgery. FAMILY HISTORY: Noncontributory. SOCIAL HISTORY: Denies tobacco, alcohol or IV drug usage. ALLERGIES: None. CURRENT MEDICATIONS: Tylenol, Maalox, Cardizem, Robitussin, lactulose, Levaquin, Ativan, Antivert, Zofran, Seroquel, Desyrel. REVIEW OF SYSTEMS: Unobtainable. PHYSICAL EXAMINATION: VITAL SIGNS: Temperature 97.5, breathing 18, pulse of 93, blood pressure 95/56, satting 99%. GENERAL: In no apparent distress. EYES: Anicteric, normal conjunctivae. HEENT: Normocephalic, atraumatic. Moist mucous membranes. NECK: Soft, supple. CHEST: Clear, no effort. CARDIOVASCULAR: Regular rate and rhythm. ABDOMEN: Soft, nontender, nondistended. SKIN: Warm, dry. EXTREMITIES: Reveal no cyanosis. LABORATORY DATA: Show white count 7, hemoglobin 11.7, platelets of 325. CT abdomen and pelvis showed massive fecal impaction. IMPRESSION: A 66-year-old male with constipation, change in bowel habits, fecal impaction, will likely need laxatives and enema to help for more bowel movements. He has not had a colonoscopy in over 10 years, so once he is cleaned out, ____ colonoscopy can be done. PLAN: 1.Laxatives. 2.Enema. 3.Colonoscopy when cleaned out. Thank you for allowing me to participate. Please call me if any questions. JOB# [id number]
--- NOTE | 2016-10-05 21:54 | Discharge Summary ---
CHIEF COMPLAINT: Fever. FINAL DIAGNOSES: Fever, sepsis, urinary tract infection, possible E. coli, Alzheimer's dementia, seizure, SVT, which is improved, hematuria, anemia, debilitation, rectal infection and constipation. HISTORY OF PRESENT ILLNESS: This is a 66-year-old male with history of Alzheimer's dementia, debilitation, seizure, and BPH who was seen initially at [facility] ER secondary to fever and chills. The patient was transferred to [place] for continued care and treatment. PHYSICAL EXAMINATION: VITAL SIGNS: Blood pressure 105/68, respirations 19, pulse 86, temperature 98.3. GENERAL: Elderly male, appears chronically ill. HEENT: Bilateral temporal wasting. NECK: Supple. No mass. LUNGS: Decreased breath sounds, few rhonchi. HEART: Regular rate and rhythm without appreciable murmurs. ABDOMEN: Soft, nontender. Positive bowel sounds. EXTREMITIES: Positive atrophy, positive decubitus ulceration. NEUROLOGIC: Limited, spastic lower extremities. HOSPITAL COURSE: The patient was admitted to telemetry. The patient was referred to Dr. Jose Shaikh for Infectious Disease, Dr. James and Dr. Trotter for psychiatry. His psychotropic medications were adjusted and lowered. The patient was also seen by Dr. Plummer for Neurology, Dr. Joe Brar for Gastroenterology. The patient with rectal infection. The patient was given laxatives and was able to have bowel movements and urinating via Arana. The patient with ____ hematuria. UA did just show positive for E. coli, which is pansensitive. The patient to be discharged to ____ home health. CONDITION ON DISCHARGE: Fair. OVERALL PROGNOSIS: Poor. DISCHARGE INSTRUCTIONS: The patient's condition was discussed in great detail with the patient's with the son translating. The patient will be following with GI for outpatient colonoscopy with the primary care resident physician for further care. The patient will return to ER if his condition worsens. JOB# [id number]
== END 2016-10-05 12:30 | disposition home or self-care (01) | DRG 871 ==
LOC: TELE 03:23 → MSI 10-04 18:14
PROVIDERS: ADMIT Internal Medicine; ATTEND Internal Medicine
DX: A41.9 Sepsis, unspecified organism (principal); G93.40 Encephalopathy, unspecified; L89.621 Pressure ulcer of left heel, stage 1; I47.1 Supraventricular tachycardia; G30.9 Alzheimer's disease, unspecified; L89.611 Pressure ulcer of right heel, stage 1; K56.49 Other impaction of intestine; F02.80 Dementia in other diseases classified elsewhere, unspecified severity, without behavioral disturbance, psychotic disturbance, mood disturbance, and anxiety; N39.0 Urinary tract infection, site not specified; G40.909 Epilepsy, unspecified, not intractable, without status epilepticus; N40.0 Benign prostatic hyperplasia without lower urinary tract symptoms; I10 Essential (primary) hypertension; D64.9 Anemia, unspecified; K56.41 Fecal impaction; B96.20 Unspecified Escherichia coli [E. coli] as the cause of diseases classified elsewhere; Z98.890 Other specified postprocedural states
CPT/HCPCS: 36415-UA; 71010-TC; 71250-TC; 80048-TC; 80053-TC; 80299-90; 81001-TC; 82105-90; 82140-TC; 82378-90; 82550-TC; 82607-90; 82746-90; 83735-TC; 83880-TC; 84153-90; 84443-TC; 85007-TC; 85025-TC; 85027-TC; 87086-90; 90779; 94760; J1200; J1630; J1956; J2060; J7613; Q9967; Z7610

== ENCOUNTER 2017-10-21 13:04 | Inpatient (IN) | payer MEDICARE, MEDICAID ==
[2017-10-21] MEDS ORDERED: Diatrizoate Meglumine/Diatri 30 mL Sol PO ONE (13:05)
--- NOTE | 2017-10-21 13:20 | ED Physician Chart ---
ED Chief Complaint/HPI - Patient Information Date Seen:: 10/21/17 Time Seen:: 13:00 Chief Complaint:: Fever History of Present Illness:: onset x 3 days of fever, cough, congestion, poor oral intake with g-tube malfunction; no report of AMS, LOC, S/T, H/As, neck pain, C/P, SOB, Abd. Pain, N /V/D/C, chills, or urinary s/s Allergies:: Allergies Allergy/AdvReac Type Severity Reaction Status Date / Time No Known Allergies Allergy Verified 09/30/16 03:58 Historian:: Patient, EMS Review:: Nurse's Note Reviewed, Old Chart Reviewed, EMS run form Reviewed ED Review of Systems - Review of Systems General/Constitutional: Fever, No chills, No weight loss, No weakness, No diaphoresis, No edema, No loss of appetite Skin: No skin lesions, No rash, No bruising Head: No headache, No light-headedness Eyes: No loss of vision, No pain, No diplopia ENT: No earache, No nasal drainage, No sore throat, No tinnitus Neck: No neck pain, No swelling, No thyromegaly, No stiffness, No mass noted Cardio Vascular: No chest pain, No palpitations, No PND, No orthopnea, No edema Pulmonary: No SOB, Cough, No sputum, No wheezing GI: No nausea, No vomiting, No diarrhea, No pain, No melena, No hematochezia, No constipation, No hematemesis G/U: No dysuria, No frequency, No hematuria, No nacturia Musculoskeletal: No bone or joint pain, No back pain, No muscle pain Endocrine: No polyuria, No polydipsia Psychiatric: No prior psych history, No depression, No anxiety, No suicidal ideation, No homicidal ideation, No auditory hallucination, No visual hallucination Hematopoietic: No bruising, No lymphadenopathy Allergic/Immuno: No urticaria, No angioedema Neurological: No syncope, Focal symptoms, Weakness, Paresthesia, No headache, Seizure, No dizziness, Confusion, No vertigo ED Past Medical History - Past Medical History Obtainable: Yes Past Medical History: HTN, CVA/TIA, Dyslipidemia, Seizures, Dementia Family History: Diabetes Melitus, HTN Social History: Non Smoker, No Alcohol, No Drug Use, Single, Care Facility Surgical History: PEG/GTube Psychiatricy History: Dementia Medication: Reviewed Family Medical History - Family Member Mother History Unknown: Yes ED Physical Exam - Physical Examination General/Constitutional: Awake, Well-developed, well-nourished, Alert, No distress, GCS 15, Non-toxic appearing, Ambulatory Head: Atraumatic Eyes: Lids, conjuctiva normal, PERRL, EOMI Skin: Nl inspection, No rash, No skin lesions, No ecchymosis, Well hydrated, No lymphadenopathy ENMT: External ears, nose nl, TM canals nl, Nasal exam nl, Lips, teeth, gums nl , Oropharynx nl, Tonsils nl Neck: Nontender, Full ROM w/o pain, No JVD, No nuchal rigidity, No bruit, No mass, No stridor Respiratory: Nl effort/Exclusion Other Respiratory comments:: Lungs: + rales and Rhonchi Cardio Vascular: RRR, No murmur, gallop, rubs, NL S1 S2, Carotid/Femoral/Distal pulses equal bilaterally GI: No tenderness/rebounding/guarding, No organomegaly, No hernia, Normal BS's, Nondistended, No mass/bruits, No McBurney tenderness : No CVA tenderness Extremities: No tenderness or effusion, Full ROM, normal strength in all extremities, No edema, Normal digits & nails Neuro/Psych: DTR's symmetric, Normal sensory exam, Normal motor strength, Judgement/insight normal, Mood normal, Normal gait, No focal deficits Other Neuro/Psych comments:: Disoriented and Confused Misc: Normal back, No paraspinal tenderness ED Labs/Radiology/EKG Results - Lab Results Comments:: unremarkable - Radiology Results Comments:: NAD - EKG Interpretations EKG Time:: 15:00 Rate & Rhythm: 70; NSR Comments:: LIZBETH; non-specific st-t changes ED Septic Shock - . Is Septic Shock (SBP<90, OR Lactate>4 mmol\L) present?: No ED Reassessment (Disposition) - Diagnosis Diagnosis:: Dx: Uncontrolled Hypertension; Poor Oral Intake; Dehydration; Bronchitis; G- Tube Dysfunction; Dementia
[2017-10-21] MEDS ORDERED: Sodium Chloride 0.9% 1,000 ML IV ONE (13:21)
[2017-10-21] MEDS ORDERED: NITROGLYCERIN OINT 2% 1 INCH PACKET TP STA (13:38)
[2017-10-21] MEDS ORDERED: NITROGLYCERIN OINT 2% 1 INCH PACKET TP ONE (13:42)
[2017-10-21 14:32] LABS: % EOSINOPHILS 5.1 % (0.0-5.0); EOSINOPHILE ABSOLUTE 0.3 Th/cmm (0.1-0.4); MEAN PLATELET VOLUME 8.3 fl; RED BLOOD COUNT 4.62 Mil/cmm (3.80-5.80); RED CELL DISTRIBUTION WIDTH 14.5 % (11.5-20.0)
[2017-10-21 14:34] LABS: % LYMPHOCYTES 43.5 % (20.0-50.0); % MONOCYTES 8.4 % (2.0-10.0); HEMOGLOBIN 13.3 gm/dL (12-16); LYMPHOCYTE ABSOLUTE 2.9 Th/cmm (1.5-3.0); MEAN CELL VOLUME 85.8 fl (80-99); MEAN CORPUSCULAR HEMOGLOBIN 28.8 pg (27.0-31.0); MEAN CORPUSCULAR HGB CONC 33.6 pg (28.0-36.0); MONOCYTE ABSOLUTE 0.6 Th/cmm (0.3-1.0); NEUTROPHILE ABSOLUTE 2.9 Th/cmm (1.8-8.0); PLATELET COUNT 306 Th/cmm (150-400)
--- NOTE | 2017-10-21 14:46 | Diagnostic Imaging Report ---
Upper GI with Gastrografin HISTORY: G-tube confirmation COMPARISON: None FINDINGS: Steward/Stewardess view demonstrates nonspecific gas-filled loops of bowel. A percutaneous feeding tube is noted. Distal fecal impaction is noted The second image demonstrates contrast opacification of the stomach and small bowel loops. IMPRESSION: Intraluminal confirmation of patient's percutaneous gastric feeding tube. Distal fecal impaction.
--- NOTE | 2017-10-21 14:46 | Diagnostic Imaging Report ---
CHEST X-RAY: AP view INDICATION: pain COMPARISON: 09/30/2016 FINDINGS: Low lung volumes are seen with right basal increased markings. No focal consolidation or effusions. Heart size normal. Degenerative changes of the spine are noted. IMPRESSION: Low lung volumes with right basal subsegmental atelectasis versus scarring. No focal consolidation identified.
[2017-10-21 14:49] LABS: WHITE BLOOD COUNT 6.7 Th/cmm (4.8-10.8)
[2017-10-21 14:50] LABS: HEMATOCRIT 39.7 % (41.0-60)
[2017-10-21 14:57] LABS: INR 0.98 (0.5-1.4); PROTHROMBIN TIME (TEST) 10.2 SECONDS (9.5-11.5)
[2017-10-21 15:04] LABS: ALB/GLOB RATIO 1.7 (1.0-1.8); ALBUMIN 4.4 gm/dL (4.2-5.5); ALKALINE PHOSPHATASE 68 U/L (34-104); AMYLASE SERUM 95 U/L (29-103); ANION GAP 8.9 (7.0-16.0); BILIRUBIN,TOTAL 0.3 mg/dL (0.3-1.0); BUN - UREA NITROGEN 17 mg/dL (7-25); CALCIUM SERUM 9.7 mg/dL (8.6-10.3); CARBON DIOXIDE 32.3 mEq/L (21.0-31.0); CHLORIDE 101 mEq/L (98-107); CREATININE - SERUM 0.7 mg/dL (0.7-1.3); CREATININE KINASE 102 U/L (30-223); GFR AFRICAN-AMERICAN > 60.0 ml/min (>90); GFR NON AFRICAN-AMERICAN > 60.0 ml/min; GLUCOSE 80 mg/dL (70-105); LIPASE 57 U/L (11-82); POTASSIUM SERUM 4.2 mEq/L (3.5-5.1); SGOT 26 U/L (13-39); SGPT/ALT 25 U/L (7-52); SODIUM SERUM 138 mEq/L (136-145)
[2017-10-21 15:20] LABS: TROP I < 0.01 ng/mL (0.01-0.05)
[2017-10-21] MEDS ORDERED: Levofloxacin 500mg/100mL 500 MG/100 ML BAG IV ONE ×2 (16:49→17:52)
[2017-10-21] MEDS ORDERED: Guaifenesin DM 10 ML UDC GT PRN (22:40)
[2017-10-21] MEDS: D5-0.45NS 1,000 ML IV SCH (23:26)
[2017-10-22 06:16] LABS: % EOSINOPHILS 3.4 % (0.0-5.0); % LYMPHOCYTES 26.2 % (20.0-50.0); % MONOCYTES 5.9 % (2.0-10.0); % NEUTROPHILS 64.5 % (40.0-80.0); EOSINOPHILE ABSOLUTE 0.2 Th/cmm (0.1-0.4); HEMATOCRIT 36.7 % (41.0-60); LYMPHOCYTE ABSOLUTE 1.8 Th/cmm (1.5-3.0); MEAN CELL VOLUME 86.2 fl (80-99); MEAN CORPUSCULAR HEMOGLOBIN 28.2 pg (27.0-31.0); MEAN CORPUSCULAR HGB CONC 32.8 pg (28.0-36.0); MEAN PLATELET VOLUME 7.9 fl; MONOCYTE ABSOLUTE 0.4 Th/cmm (0.3-1.0); NEUTROPHILE ABSOLUTE 4.3 Th/cmm (1.8-8.0); PLATELET COUNT 282 Th/cmm (150-400); RED BLOOD COUNT 4.26 Mil/cmm (3.80-5.80); WHITE BLOOD COUNT 6.7 Th/cmm (4.8-10.8)
[2017-10-22 06:31] LABS: INR 1.07 (0.5-1.4); PROTHROMBIN TIME (TEST) 11.1 SECONDS (9.5-11.5)
[2017-10-22 06:33] LABS: BUN - UREA NITROGEN 14 mg/dL (7-25); CARBON DIOXIDE 26.8 mEq/L (21.0-31.0); CHLORIDE 104 mEq/L (98-107); CHOLESTEROL 182 mg/dL (<200); CREATININE - SERUM 0.7 mg/dL (0.7-1.3); GFR AFRICAN-AMERICAN > 60.0 ml/min (>90); GFR NON AFRICAN-AMERICAN > 60.0 ml/min; GLUCOSE 103 mg/dL (70-105); HDL -HIGH DENSITY LIPOPROTEIN 38 mg/dL (23-92); POTASSIUM SERUM 3.8 mEq/L (3.5-5.1); SODIUM SERUM 136 mEq/L (136-145); TRIGLYCERIDES 84 mg/dL (<150)
[2017-10-22] MEDS: Levetiracetam 500 mg/5mL 5mL UDSyr *for ORAL USE ONLY GT SCH ×2 (10:38→18:12)
[2017-10-22] MEDS: POLYETHYLENE GLYCOL 3350 17 GM PACK GT SCH (10:39)
[2017-10-22] MEDS ORDERED: Magnesium Citrate 1.75 GM/300 mL Bottle GT ONE (11:00)
[2017-10-22] MEDS ORDERED: Albuterol/Ipratropium Neb 3 ML AERS HHN SCH (15:00)
--- NOTE | 2017-10-22 15:37 | Consultation ---
Consult Note - Consult Note Service Date: 10/22/17 Referring Physician: Roby Leonard Consult Note: PHYSICIAN Consultation Note: Date of Admission: 10/21/17 Purpose of Consultation: Pneumonia. Chief Complaint: Patient GEORGIA GUZMAN was admitted to location Medical/ Surgical Unit I with PNEUMONIA,G-TUBE MALFUNCTION. History of Present Illness: Senna 67-year-old male with a past medical history of CVA hypertension brought to the ER for G-tube malfunction. He had also developed dry cough. On further evaluation, CXR has showed pneumonia. He is on T bar oxygen and the has increased endotracheal secretion. Levaquin was started. ID consult was called for antibiotic management. No fever, no chills. Past Medical History: Allergies Allergy/AdvReac Type Severity Reaction Status Date / Time albuterol Allergy Verified 10/21/17 13:35 Vital Signs Temp 97.6 F 10/22/17 12:00 Pulse 82 10/22/17 12:00 Resp 18 10/22/17 12:00 BP 105/61 10/22/17 12:00 Pulse Ox 96 10/22/17 12:00 Intake & Output 10/21/17 10/22/17 10/22/17 18:59 06:59 18:59 Intake Total 100 Balance 100 Intake: Intake, IV Amount 100 Other: Stool Characteristics Soft Formed Brown Laboratory Results - last 24 hr 10/22/17 10/22/17 10/22/17 06:05 06:05 06:05 WBC 6.7 RBC 4.26 Hgb 12.0 Hct 36.7 L MCV 86.2 MCH 28.2 MCHC Differential 32.8 RDW 14.0 Plt Count 282 MPV 7.9 Neutrophils % 64.5 Lymphocytes % 26.2 Monocytes % 5.9 Eosinophils % 3.4 Basophils % 0.0 PT 11.1 INR 1.07 PTT (Actin FS) 21.8 L Sodium 136 Potassium 3.8 Chloride 104 Carbon Dioxide 26.8 Anion Gap 9.0 BUN 14 Creatinine 0.7 Est GFR ( Amer) > 60.0 Est GFR (Non-Af Amer) > 60.0 BUN/Creatinine Ratio 20.0 Glucose 103 Calcium 9.0 Triglycerides 84 Cholesterol 182 LDL Cholesterol Direct 141 HDL Cholesterol 38 TSH 10/22/17 06:05 WBC RBC Hgb Hct MCV MCH MCHC Differential RDW Plt Count MPV Neutrophils % Lymphocytes % Monocytes % Eosinophils % Basophils % PT INR PTT (Actin FS) Sodium Potassium Chloride Carbon Dioxide Anion Gap BUN Creatinine Est GFR ( Amer) Est GFR (Non-Af Amer) BUN/Creatinine Ratio Glucose Calcium Triglycerides Cholesterol LDL Cholesterol Direct HDL Cholesterol TSH 1.70 Home Medication Medication Instructions Recorded Type Baclofen [Lioresal] 15 mg GT BID 09/30/16 History Lactulose [Generlac] 10 gm GT DAILY 09/30/16 History Levetiracetam [Keppra] 750 mg GT BID 09/30/16 History QUEtiapine Fumarate [SEROquel] 25 mg GT HS 09/30/16 History Trazodone HCl 150 mg GT HS 09/30/16 History Guaifenesin/Dextromethorphan 5 ml GT QID PRN 10/21/17 History [Guaifenesin Dm Syrup] Pantoprazole [Protonix] 1 tab GT DAILY 10/21/17 History Polyethylene Glycol 3350 [Mhm1142] 1 scoopful GT BID 10/21/17 History Current Medications Generic Name Dose Route Start Last Admin Trade Name Freq PRN Reason Stop Dose Admin Albuterol/Ipratropium 3 ml 10/22/17 15:00 Duoneb Neb HHN 12/21/17 14:59 Q4HRT CHRIS Baclofen 15 mg 10/22/17 09:00 10/22/17 10:38 Lioresal GT 12/21/17 08:59 15 mg BID CHRIS Administration Guaifenesin/Dextromethorphan 5 ml 10/21/17 22:40 Robitussin Dm GT 12/20/17 22:39 QID PRN Cough Dextrose/Sodium Chloride 1,000 mls @ 50 mls/hr 10/21/17 22:02 10/21/17 23:26 D5-0.45ns IV 12/20/17 22:01 50 mls/hr .Q20H CHRIS Administration Levofloxacin 500 mg in 100 mls @ 100 mls/hr 10/22/17 21:00 Levaquin Pb IV 12/21/17 20:59 Q24HR CHRIS Levetiracetam 750 mg 10/22/17 09:00 10/22/17 10:38 Keppra GT 12/21/17 08:59 750 mg BID CHRIS Administration Mineral Oil 30 ml 10/22/17 09:50 Mineral Oil 30 Ml GT 12/21/17 09:49 DAILY PRN Constipation Miscellaneous 10 gm 10/22/17 09:00 Lactulose [Generlac] GT 12/21/17 08:59 DAILY CHRIS Pantoprazole Sodium 20 mg 10/22/17 09:00 10/22/17 10:39 Protonix IVP 12/21/17 08:59 20 mg DAILY CHRIS Administration Polyethylene Glycol 17 gm 10/22/17 09:00 10/22/17 10:39 Miralax GT 12/21/17 08:59 17 gm DAILY CHRIS Administration Quetiapine Fumarate 25 mg 10/22/17 21:00 Seroquel GT 12/21/17 20:59 HS CHRIS Protocol Trazodone HCl 150 mg 10/22/17 21:00 Desyrel GT 12/21/17 20:59 HS CHRIS Review of Systems: A 12 point ROS was reviewed with the pertinent positive and negatives noted in the HPI. Social History Smoking Status Never smoker Family Medical History Family Medical History Start: 10/21/17 22: 02 Freq: ONCE Status: Active Document 10/22/17 01:30 NIKKI (Rec: 10/22/17 01:30 [id number] ) Family Medical History Mother History Unknown Yes Physical Exam: General: HEENT: Head: Normocytic, atraumatic. Oral cavity: Moist, pink tongue. Eyes: Pallor is present Neck: No rigidity. Cardio: S1 and S2 within normal. Soft, nontender disease. Also present taking any dysuria Respiratory: Vesicular breath sound no crackles or wheezing Abdominal: Soft, nontender, nondistended bowel sounds present. G tube site is clear. Genital/Urinary: Extremities: No sinus, no clubbing, no edema. Right leg he daily. Healing well. Neurological: Alert, awake, unable to communicate, expressive aphasia. Assessment: 1. Pneumonia. 2. G tube malfunction. now working well. 3. CVA. 4. Dysphagia. Plan: Continue levaquin. Check influenza screen. Thank you, Dr Leonard for involving me in taking care of this patient. Aziza, Jose Shaikh M.D. [id number]
--- NOTE | 2017-10-22 15:42 | Consultation ---
DATE OF CONSULTATION: 10/22/2017 REASON FOR CONSULTATION: Malfunctioning G-tube. HISTORY OF PRESENT ILLNESS: This consult was obtained through the request of Dr. Leonard for this 67-year-old with history of dementia, seizure disorder, benign prostatic hypertrophy, possible CVA, dysphagia, status post G-tube placement, who presented to the hospital for malfunctioning G-tube and black material draining from the G-tube. The patient is not able to provide any history. He was somewhat responsive, but also agitated. PAST MEDICAL HISTORY: Dementia, seizure disorder, CVA, benign prostatic hypertrophy, and dysphagia. PAST SURGICAL HISTORY: Prostatic surgery. SOCIAL HISTORY: At this time, the patient is a nonsmoker, nonalcoholic, non-IV drug abuser. FAMILY HISTORY: Noncontributory. ALLERGIES: ALBUTEROL. MEDICATIONS: The patient is on baclofen, Keppra, Levaquin, Protonix, MiraLax, Seroquel, and Desyrel. REVIEW OF SYSTEMS: Unobtainable. PHYSICAL EXAMINATION: GENERAL: The patient is awake, responsive. VITAL SIGNS: Blood pressure is 104/62, heart rate 86, respiratory rate 20, temperature 98.7. HEAD AND NECK: Pupils reactive to light. Extraocular muscles could not be tested. Oral cavity, no lesion. NECK: Supple, no jugular venous distention, no carotid bruit or lymph node. CHEST: Good respiratory movements. LUNGS: Clear to auscultation. CARDIOVASCULAR: Regular rate and rhythm. No murmur or gallop. ABDOMEN: Soft, positive bowel sound. G-tube has some black material to it. I flushed the G-tube with water, there was a little bit resistant at the beginning, but then it went through and after that, we could infuse an aspirate. Bowel sounds are present. EXTREMITIES: Lower extremities, no edema. CENTRAL NERVOUS SYSTEM: Unable to evaluate. LABORATORY DATA: White count 6.7. H and H are 12 and 36.7, platelets of 282. The patient had an x-ray which a G-tube in place, but it showed fecal impaction and constipation. IMPRESSION: A 67-year-old with malfunctioning G-tube. ASSESSMENT AND PLAN: 1. Malfunctioning G-tube. The G-tube itself has been the declogged, so this should be fine. We will continue to declog, then we will start feeding problem. 2. Constipation. We will give the patient a bottle of mag citrate and then mineral oil on daily basis. 3. Black residue from the G-tube. We will watch for now. If there is GI bleed, which meaning fresh blood or drop in hemoglobin, then we will consider endoscopy. Other medical problems such as dementia, seizure, cerebrovascular accident, etc., as per Dr. Leonard. Thank you, Dr. Leonard for allowing me to participate in the care of the patient. If you have any further questions, please let me know. JOB# [id number]
[2017-10-22] MEDS: LACTULOSE 10 GM GT SCH (18:13)
[2017-10-22] MEDS: D5-0.45NS 1,000 ML IV SCH (18:15)
[2017-10-22 19:56] LABS: INF A SCREEN NEG FOR INF A
[2017-10-22 19:57] LABS: INF B SCREEN NEG FOR INF B
--- NOTE | 2017-10-22 20:26 | History and Physical ---
History of Present Illness - HPI Chief Complaint: gt malfunction, dehydration , fever HPI: This is a 67 year old male admitted for a 3 day history of fever, congestion , weakness , and gt malfunction Vital Signs: Last Vital Signs Temp 97.4 F 10/22/17 15:58 Pulse 79 10/22/17 15:58 Resp 19 10/22/17 15:58 BP 101/55 10/22/17 15:58 Pulse Ox 97 10/22/17 15:58 Past Medical History Other History: htn cva tia dyslipidemia seizure dementia - Past Surgical History Past Surgical History: Other (peg) Family Medical History - Family Member Mother History Unknown: Yes Social History Smoke: No Alcohol: None Drugs: None Lives: With Family - Medications Home Medications: Home Medication Medication Instructions Recorded Type Baclofen [Lioresal] 15 mg GT BID 09/30/16 History Lactulose [Generlac] 10 gm GT DAILY 09/30/16 History Levetiracetam [Keppra] 750 mg GT BID 09/30/16 History QUEtiapine Fumarate [SEROquel] 25 mg GT HS 09/30/16 History Trazodone HCl 150 mg GT HS 09/30/16 History Guaifenesin/Dextromethorphan 5 ml GT QID PRN 10/21/17 History [Guaifenesin Dm Syrup] Pantoprazole [Protonix] 1 tab GT DAILY 10/21/17 History Polyethylene Glycol 3350 [[id number]] 1 scoopful GT BID 10/21/17 History - Allergies Allergies/Adverse Reactions: Allergies Allergy/AdvReac Type Severity Reaction Status Date / Time albuterol Allergy Verified 10/21/17 13:35 Review of Systems - Review of Systems Constitutional: Report: Weakness Eyes: Report: No Significant ENT: Report: No Significant Respiratory: Report: No Significant Cardiovascular: Report: No Significant Gastrointestinal: Report: No Significant Genitourinary: Report: No Significant Musculoskeletal: Report: No Significant Skin: Report: No Significant Neurological: Report: Weakness Physical Exam - Physical Exam HEENT: Report: Ears Nose Throat within normal limits Neck: Report: Within normal limits Cardiovascular Systems: Report: +s1/s2 noted, Regular, Rate and Rhythm Respiratory: Report: Rhonchi Abdomen: Report: Non-tender to palpation Extremities: Report: Non-tender to palpation. Neuro/Psych: Report: Weakness or sensory loss noted. - Lab Results All Lab Results last 24 hours: Laboratory Results - last 24 hr 10/22/17 10/22/17 10/22/17 06:05 06:05 06:05 WBC 6.7 RBC 4.26 Hgb 12.0 Hct 36.7 L MCV 86.2 MCH 28.2 MCHC Differential 32.8 RDW 14.0 Plt Count 282 MPV 7.9 Neutrophils % 64.5 Lymphocytes % 26.2 Monocytes % 5.9 Eosinophils % 3.4 Basophils % 0.0 PT 11.1 INR 1.07 PTT (Actin FS) 21.8 L Sodium 136 Potassium 3.8 Chloride 104 Carbon Dioxide 26.8 Anion Gap 9.0 BUN 14 Creatinine 0.7 Est GFR ( Amer) > 60.0 Est GFR (Non-Af Amer) > 60.0 BUN/Creatinine Ratio 20.0 Glucose 103 Calcium 9.0 Triglycerides 84 Cholesterol 182 LDL Cholesterol Direct 141 HDL Cholesterol 38 TSH Influenza A (Rapid) Influenza B (Rapid) 10/22/17 10/22/17 06:05 19:00 WBC RBC Hgb Hct MCV MCH MCHC Differential RDW Plt Count MPV Neutrophils % Lymphocytes % Monocytes % Eosinophils % Basophils % PT INR PTT (Actin FS) Sodium Potassium Chloride Carbon Dioxide Anion Gap BUN Creatinine Est GFR ( Amer) Est GFR (Non-Af Amer) BUN/Creatinine Ratio Glucose Calcium Triglycerides Cholesterol LDL Cholesterol Direct HDL Cholesterol TSH 1.70 Influenza A (Rapid) NEG FOR INF A Influenza B (Rapid) NEG FOR INF B - Assessment Assessment: gt malfunction acute dehydration possible pneumonia acute febrile illness htn seizures dementia dm - Plan Plan: gi consultation id consultation bronchodilators ivf for hydration accucheck ac+hs continue current orders
[2017-10-22] MEDS: Levofloxacin 500mg/100mL 500 MG/100 ML BAG IV SCH (20:50)
--- NOTE | 2017-10-23 08:30 | Diagnostic Imaging Report ---
CHEST X-RAY: AP view INDICATION: Pneumonia COMPARISON: 10/21/2017 FINDINGS: There is mild elevation of right hemidiaphragm with chronic changes increased right basal lung markings. No focal consolidation identified. There may be a trace right effusion. Heart size is normal. IMPRESSION: Mild elevation of the right hemidiaphragm with mild increased right basal lung markings which may be due to atelectasis versus developing infiltrate. Follow-up recommended.
--- NOTE | 2017-10-23 08:45 | General Progress Note ---
Subjective - Review of Systems Service Date: 10/23/17 Events since last encounter: much more awake and alert today less congestion son at bedside. updates given regarding chest xray Objective - Results Result Diagrams: 10/22/17 06:05 10/22/17 06:05 Recent Labs: Laboratory Last Values WBC 6.7 Th/cmm (4.8-10.8) 10/22/17 06:05 RBC 4.26 Mil/cmm (3.80-5.80) 10/22/17 06:05 Hgb 12.0 gm/dL (12-16) 10/22/17 06:05 Hct 36.7 % (41.0-60) L 10/22/17 06:05 MCV 86.2 fl (80-99) 10/22/17 06:05 MCH 28.2 pg (27.0-31.0) 10/22/17 06:05 MCHC Differential 32.8 pg (28.0-36.0) 10/22/17 06:05 RDW 14.0 % (11.5-20.0) 10/22/17 06:05 Plt Count 282 Th/cmm (150-400) 10/22/17 06:05 MPV 7.9 fl 10/22/17 06:05 Neutrophils % 64.5 % (40.0-80.0) 10/22/17 06:05 Lymphocytes % 26.2 % (20.0-50.0) 10/22/17 06:05 Monocytes % 5.9 % (2.0-10.0) 10/22/17 06:05 Eosinophils % 3.4 % (0.0-5.0) 10/22/17 06:05 Basophils % 0.0 % (0.0-2.0) 10/22/17 06:05 PT 11.1 SECONDS (9.5-11.5) 10/22/17 06:05 INR 1.07 (0.5-1.4) 10/22/17 06:05 PTT (Actin FS) 21.8 SECONDS (26.0-38.0) L 10/22/17 06:05 Sodium 136 mEq/L (136-145) 10/22/17 06:05 Potassium 3.8 mEq/L (3.5-5.1) 10/22/17 06:05 Chloride 104 mEq/L (98-107) 10/22/17 06:05 Carbon Dioxide 26.8 mEq/L (21.0-31.0) 10/22/17 06:05 Anion Gap 9.0 (7.0-16.0) 10/22/17 06:05 BUN 14 mg/dL (7-25) 10/22/17 06:05 Creatinine 0.7 mg/dL (0.7-1.3) 10/22/17 06:05 Est GFR ( Amer) > 60.0 ml/min (>90) 10/22/17 06:05 Est GFR (Non-Af Amer) > 60.0 ml/min 10/22/17 06:05 BUN/Creatinine Ratio 20.0 10/22/17 06:05 Glucose 103 mg/dL (70-105) 10/22/17 06:05 Whole Bld Lactic Acid 1.53 mmol/L (0.60-1.99) 10/21/17 14:20 Calcium 9.0 mg/dL (8.6-10.3) 10/22/17 06:05 Total Bilirubin 0.3 mg/dL (0.3-1.0) 10/21/17 14:20 AST 26 U/L (13-39) 10/21/17 14:20 ALT 25 U/L (7-52) 10/21/17 14:20 Alkaline Phosphatase 68 U/L (34-104) 10/21/17 14:20 Creatine Kinase 102 U/L (30-223) 10/21/17 14:20 Troponin I < 0.01 ng/mL (0.01-0.05) L 10/21/17 14:20 Total Protein 7.0 gm/dL (6.0-8.3) 10/21/17 14:20 Albumin 4.4 gm/dL (4.2-5.5) 10/21/17 14:20 Globulin 2.6 gm/dL 10/21/17 14:20 Albumin/Globulin Ratio 1.7 (1.0-1.8) 10/21/17 14:20 Triglycerides 84 mg/dL (<150) 10/22/17 06:05 Cholesterol 182 mg/dL (<200) 10/22/17 06:05 LDL Cholesterol Direct 141 mg/dL (75-193) 10/22/17 06:05 HDL Cholesterol 38 mg/dL (23-92) 10/22/17 06:05 Amylase 95 U/L (29-103) 10/21/17 14:20 Lipase 57 U/L (11-82) 10/21/17 14:20 TSH 1.70 uIU/ml (0.34-5.60) 10/22/17 06:05 Influenza A (Rapid) NEG FOR INF A 10/22/17 19:00 Influenza B (Rapid) NEG FOR INF B 10/22/17 19:00 - Physical Exam Vitals and I&O: Vital Signs Temp 97.1 F 10/23/17 08:00 Pulse 83 10/23/17 08:00 Resp 17 10/23/17 08:00 BP 99/63 10/23/17 08:00 Pulse Ox 95 10/23/17 08:00 Intake & Output 10/22/17 10/23/17 10/23/17 18:59 06:59 18:59 Intake Total 940.833 550 Balance 940.833 550 Weight (lbs) 63.503 kg Intake: Intake, IV Amount 940.833 D5-0.45NS 1,000 ml @ 50 940.833 mls/hr IV .Q20H [facility] Rx#: [id number] Tube Feeding 350 Other 200 Other: # Voids 2 # Bowel Movements 1 Stool Characteristics Soft Soft Formed Formed Brown Brown Active Medications: Current Medications Baclofen (Lioresal) 15 mg GT BID CHRIS Stop: 12/21/17 08:59 Last Admin: 10/22/17 18:12 Dose: 15 mg Guaifenesin/Dextromethorphan (Robitussin Dm) 5 ml GT QID PRN PRN Reason: Cough Stop: 12/20/17 22:39 Dextrose/Sodium Chloride (D5-0.45ns) 1,000 mls @ 50 mls/hr IV .Q20H CHRIS Stop: 12/20/17 22:01 Last Admin: 10/22/17 18:15 Dose: 50 mls/hr Levofloxacin (Levaquin Pb) 500 mg in 100 mls @ 100 mls/hr IV Q24HR CHRIS Stop: 12/21/17 20:59 Last Admin: 10/22/17 20:50 Dose: 100 mls/hr Levetiracetam (Keppra) 750 mg GT BID CHRIS Stop: 12/21/17 08:59 Last Admin: 10/22/17 18:12 Dose: 750 mg Mineral Oil (Mineral Oil 30 Ml) 30 ml GT DAILY PRN PRN Reason: Constipation Stop: 12/21/17 09:49 Miscellaneous (Lactulose [Generlac]) 10 gm GT DAILY CHRIS Stop: 12/21/17 08:59 Last Admin: 10/22/17 18:13 Dose: Not Given Pantoprazole Sodium (Protonix) 20 mg IVP DAILY CHRIS Stop: 12/21/17 08:59 Last Admin: 10/22/17 10:39 Dose: 20 mg Polyethylene Glycol (Miralax) 17 gm GT DAILY CHRIS Stop: 12/21/17 08:59 Last Admin: 10/22/17 10:39 Dose: 17 gm Quetiapine Fumarate (Seroquel) 25 mg GT HS CHRIS PRN Reason: Protocol Stop: 12/21/17 20:59 Last Admin: 10/22/17 22:55 Dose: 25 mg Trazodone HCl (Desyrel) 150 mg GT HS CHRIS Stop: 12/21/17 20:59 Last Admin: 10/22/17 22:53 Dose: 150 mg General: Alert, No acute distress HEENT: Atraumatic Cardiovascular: Regular rate Lungs: Normal air movement, Other (rhonchi) Abdomen: Bowel sounds, Soft Assessment/Plan - Assessment Assessment: gt malfunction acute dehydration developing pneumonia acute febrile illness htn seizures dementia dm - Plan Plan: gi consultation id consultation bronchodilators ivf for hydration accucheck ac+hs continue current orders
[2017-10-23] MEDS: Levetiracetam 500 mg/5mL 5mL UDSyr *for ORAL USE ONLY GT SCH ×2 (09:25→16:55)
[2017-10-23] MEDS: POLYETHYLENE GLYCOL 3350 17 GM PACK GT SCH (09:27)
[2017-10-23] MEDS: LACTULOSE 10 GM GT SCH (10:25)
[2017-10-23] MEDS: D5-0.45NS 1,000 ML IV SCH (13:02)
[2017-10-23] MEDS ORDERED: Silver Nitrate 1 Swab TP ONE (15:01)
[2017-10-23] MEDS: Levofloxacin 500mg/100mL 500 MG/100 ML BAG IV SCH (20:38)
[2017-10-24 06:26] LABS: ALB/GLOB RATIO 1.8 (1.0-1.8); ALBUMIN 3.9 gm/dL (4.2-5.5); ALKALINE PHOSPHATASE 61 U/L (34-104); ANION GAP 8.7 (7.0-16.0); BILIRUBIN,TOTAL 0.3 mg/dL (0.3-1.0); BUN - UREA NITROGEN 13 mg/dL (7-25); CALCIUM SERUM 9.4 mg/dL (8.6-10.3); CARBON DIOXIDE 29.4 mEq/L (21.0-31.0); CHLORIDE 104 mEq/L (98-107); CREATININE - SERUM 0.8 mg/dL (0.7-1.3); GFR AFRICAN-AMERICAN > 60.0 ml/min (>90); GFR NON AFRICAN-AMERICAN > 60.0 ml/min; GLUCOSE 121 mg/dL (70-105); POTASSIUM SERUM 4.1 mEq/L (3.5-5.1); SGOT 21 U/L (13-39); SGPT/ALT 23 U/L (7-52); SODIUM SERUM 138 mEq/L (136-145); TOTAL PROTEIN,SERUM 6.1 gm/dL (6.0-8.3)
[2017-10-24 06:33] LABS: % BASOPHILS 0.4 % (0.0-2.0); % LYMPHOCYTES 36.3 % (20.0-50.0); % MONOCYTES 10.5 % (2.0-10.0); % NEUTROPHILS 43.8 % (40.0-80.0); EOSINOPHILE ABSOLUTE 0.4 Th/cmm (0.1-0.4); HEMATOCRIT 38.2 % (41.0-60); HEMOGLOBIN 12.7 gm/dL (12-16); LYMPHOCYTE ABSOLUTE 1.7 Th/cmm (1.5-3.0); MEAN CELL VOLUME 87.1 fl (80-99); MEAN CORPUSCULAR HGB CONC 33.3 pg (28.0-36.0); MONOCYTE ABSOLUTE 0.5 Th/cmm (0.3-1.0); PLATELET COUNT 246 Th/cmm (150-400); RED BLOOD COUNT 4.38 Mil/cmm (3.80-5.80); RED CELL DISTRIBUTION WIDTH 13.9 % (11.5-20.0)
[2017-10-24 06:35] LABS: WHITE BLOOD COUNT 4.6 Th/cmm (4.8-10.8)
[2017-10-24] MEDS: POLYETHYLENE GLYCOL 3350 17 GM PACK GT SCH (10:24)
[2017-10-24] MEDS: Levetiracetam 500 mg/5mL 5mL UDSyr *for ORAL USE ONLY GT SCH (10:24)
[2017-10-24] MEDS: LACTULOSE 10 GM GT SCH (10:25)
--- NOTE | 2017-10-28 19:09 | Discharge Summary ---
DATE OF DISCHARGE: 10/24/2017 This patient, I have been following him at home and essentially this patient had problem with G-tube leak as well as some erythema around his G-tube, was sent to the hospital with the initial diagnoses there found that the pneumonia as well and G-tube malfunction and the dehydration and febrile illness, hypertension, seizures, dementia and diabetes. The patient was treated for all of that and the patient gradually improved. The patient had G-tube replacement and also was given IV antibiotic. I had ID doctor see the patient as well with the final diagnosis of pneumonia, improving; G-tube site cellulitis, improving; G-tube replaced; history of diabetes, history of bedbound status and history of dementia, was made. The patient was sent home in stable condition. MEDICATIONS: See the reconciliation sheet. JOB# [id number]
== END 2017-10-24 14:58 | disposition home or self-care (01) | DRG 393 ==
LOC: ER 13:04 → MSI 19:00
PROVIDERS: ADMIT Internal Medicine; ATTEND Internal Medicine
DX: K94.23 Gastrostomy malfunction (principal); J18.9 Pneumonia, unspecified organism; F03.90 Unspecified dementia, unspecified severity, without behavioral disturbance, psychotic disturbance, mood disturbance, and anxiety; E86.0 Dehydration; I10 Essential (primary) hypertension; G40.909 Epilepsy, unspecified, not intractable, without status epilepticus; E11.9 Type 2 diabetes mellitus without complications; K59.00 Constipation, unspecified; N40.0 Benign prostatic hyperplasia without lower urinary tract symptoms; J40 Bronchitis, not specified as acute or chronic; E78.5 Hyperlipidemia, unspecified; R13.10 Dysphagia, unspecified; Y83.8 Other surgical procedures as the cause of abnormal reaction of the patient, or of later complication, without mention of misadventure at the time of the procedure; Y92.89 Other specified places as the place of occurrence of the external cause; Z86.73 Personal history of transient ischemic attack (TIA), and cerebral infarction without residual deficits; Z83.3 Family history of diabetes mellitus; Z82.49 Family history of ischemic heart disease and other diseases of the circulatory system; Z79.899 Other long term (current) drug therapy; Z88.8 Allergy status to other drugs, medicaments and biological substances
CPT/HCPCS: 36415-UA; 71045-TC; 80048-TC; 80053-TC; 80061-TC; 82150-TC; 82550-TC; 83605; 83690-TC; 84443-TC; 84484-TC; 85025-TC; 85610-TC; 85730-TC; 87804-TC; 93005; C9113; J1956; J7030; J7042; Z7610